=== PATIENT | female | born 1960 | race Caucasian/White ===

== ENCOUNTER 2017-01-26 12:24 | Emergency (ER) | payer OTHER ==
[~2017-01-26] VITALS: Ht 162.6 cm; Wt 72.0 kg
[~2017-01-26 12:24] MED LIST: ALPR0.254 PO; BEN50 PO; GABA100C PO; GABA100C14 PO; HYDR-906 PO; MIRT15TA5 PO; NAPR-688 PO; ONDA4TAB14 PO
[2017-01-26 12:31] VITALS: Ht 162.6 cm; Wt 72.0 kg
[2017-01-26] MEDS ORDERED: SOD CHLORIDE 0.9% 500 ML IV STA (12:56)
[2017-01-26] MEDS ORDERED: ONDANSETRON 4 MG INJ IV ONE (13:00)
[2017-01-26] MEDS ORDERED: morphine 2 MG INJ IV ONE (13:00)
--- NOTE | 2017-01-26 13:18 | ERD ---
ER Documentation Chief Complaint Date/Time DATE: 01/26/17 TIME: 13:13 Chief Complaint pt bib with c/o right rib/left knee pain s/p fall over garbage can HPI 56-year-old female presents emergency room with rib pain. [employer] use. The patient states 3 days ago she was trying to throw her garbage can into a larger garbage can. It fell and. She climbed up on the metal garbage can trying to retrieve her garbage can when what she was standing on broke. She fell with her right rib cage into the metal garbage can. The patient since then has had pain to the right upper quadrant of the abdomen and ribs. She describes it as moderate to severe and only mildly alleviated with Motrin. She denies any lightheadedness or dizziness. She describes no shortness of breath. The patient also has small abrasions to bilateral knees with mild soft tissue tenderness but full active and passive range of motion. She has been ambulatory. No head trauma or loss of consciousness. ROS All systems reviewed and are negative except as per history of present illness. Medications Home Meds Active Scripts Ondansetron (Ondansetron Odt) 4 Mg Tab.rapdis, 4 MG PO Q6H Y for NAUSEA AND/OR VOMITING, #10 TAB Prov:SARI BRUSH DO 09/29/16 Naproxen* (Naproxen*) 500 Mg Tablet, 500 MG PO BID, #20 TAB Prov:SARI BRUSH DO 09/29/16 Hydrocodone/Acetaminophen ([place]kom 5-325 Tablet) 1 Each Tablet, 1 EACH PO Q6, #20 TAB Prov:SRAI BRUSH DO 09/29/16 Reported Medications Alprazolam* (Alprazolam*) 0.25 Mg Tablet, 0.25 MG PO BID, TAB 09/29/16 Diphenhydramine Hcl* (Benadryl*) 50 Mg Cap, 50 MG PO QHS Y for ITCHING, CAP 09/29/16 Gabapentin* (Neurontin*) 100 Mg Capsule, 200 MG PO QHS, CAP 01/17/15 Gabapentin* (Gabapentin*) 100 Mg Capsule, 100 PO QAM, CAP 01/17/15 Mirtazapine* (Mirtazapine*) 15 Mg Tablet, 15 MG PO HS, TAB 01/17/15 Allergies Allergies: Coded Allergies: Penicillins (Unverified Allergy, Unknown, Clarify with patient, 08/29/15) re-entered uncoded allergy as coded PMhx/Soc History of Surgery: Yes (RIGHT BREAST MASTECTOMY) Anesthesia Reaction: No Hx Neurological Disorder: No Hx Respiratory Disorders: No Hx Cardiac Disorders: No Hx Psychiatric Problems: No Hx Miscellaneous Medical Probl: Yes (BREAST CA, ON CHEMO) Hx Alcohol Use: No Hx Substance Use: No Hx Tobacco Use: No FmHx Family History: No diabetes Physical Exam Vitals Vital Signs Date Time Temp Pulse Resp B/P Pulse Ox O2 Delivery O2 Flow Rate FiO2 01/26/17 12:31 99.1 70 16 135/85 99 Physical Exam Airway is intact Bilateral breath sounds Strong distal pulses No obvious deficits General: Well developed, well nourished, no acute distress Head: Normocephalic, atraumatic Eyes: Pupils equally reactive, EOM intact ENT: Moist mucous membranes Neck: Supple, no lymphadenopathy, No midline tenderness, deformities, step-offs to the cervical spine, full active and passive range of motion without midline pain. Respiratory: Lungs clear bilaterally, no distress, focal tenderness along the lower ribs on the right side without crepitus or deformities Cardiovascular: RRR, no murmurs, rubs, or gallops Abdominal: Soft, very inconsistent exam with possible right upper quadrant tenderness but no peritonitis, no ecchymoses : Deferred MSK: No edema, no unilateral swelling, 5/5 strength, no midline tenderness deformities or step-offs to the thoracolumbar spine. Bilateral knees with full active and passive range of motion, no bony abnormalities, steady gait, small abrasions noted to the anterior aspect of the knees bilaterally Neurologic: Alert and oriented, moving all extremities, normal speech, no focal weakness, no cerebellar signs Skin: No ecchymoses or bruising to the chest or abdomen Psych: Normal mood Result Diagram: 01/26/17 1314 01/26/17 1314 Results 24 hrs Laboratory Tests Test 01/26/17 13:14 Anion Gap 19 Basophils # 0.010^3/ul Basophils % 0.3% Blood Urea Nitrogen 14mg/dl Calcium Level 9.5mg/dl Carbon Dioxide Level 24mmol/L Chloride Level 106mmol/L Creatinine 0.66mg/dl Eosinophils # 0.310^3/ul Eosinophils % 3.8% Glucose Level 83mg/dl Hematocrit 36.6% Hemoglobin 11.9g/dl Lymphocytes # 1.610^3/ul Lymphocytes % 20.0% Mean Corpuscular Hemoglobin 27.6pg Mean Corpuscular Hemoglobin Concent 32.5g/dl Mean Corpuscular Volume 84.9fl Mean Platelet Volume 9.6fl Monocytes # 0.410^3/ul Monocytes % 5.0% Neutrophils # 5.510^3/ul Neutrophils % 70.4% Nucleated Red Blood Cells # 0.010^3/ul Nucleated Red Blood Cells % 0.0/100WBC Platelet Count 51572^3/UL Potassium Level 4.1mmol/L Red Blood Count 4.3110^6/ul Red Cell Distribution Width 13.5% Sodium Level 145mmol/L White Blood Count 7.910^3/ul Current Medications Medications (Trade) Dose Ordered Sig/Faith Route PRN Reason Start Time Stop Time Status Last Admin Dose Admin Sodium Chloride (NS) 500 ml @ 500 mls/hr Q1H STAT IV 01/26/17 12:56 01/26/17 13:55 DC 01/26/17 13:17 Morphine Sulfate (morphine) 4 mg ONCE ONCE IV 01/26/17 13:00 01/26/17 13:01 DC 01/26/17 13:18 Ondansetron HCl (Zofran Inj) 4 mg ONCE ONCE IV 01/26/17 13:00 01/26/17 13:01 DC 01/26/17 13:18 Iohexol 150 ml 150 ml STK-MED ONCE .ROUTE 01/26/17 13:53 01/26/17 13:54 DC Sodium Chloride (NS) 100 ml @ ud STK-MED ONCE .ROUTE 01/26/17 13:53 01/26/17 13:54 DC Procedures/MDM EKG, MONITORS, & DIAGNOSTIC IMAGING: Chest x-ray: I reviewed and interpreted a 1 view of the chest Mediastinum: No enlargement Cardiac silhouette: No cardiomegaly Airspace: Clear lung cohen bilaterally without evidence of pneumothorax Bones: No evidence of fracture CT abdomen and pelvis: IMPRESSION: 1. Mild atelectasis at the lung bases. 2. Atherosclerosis. 3. Fibroids in the uterus. 4. Diverticulosis of the descending colon and sigmoid colon. No evidence of diverticulitis. 5. Otherwise unremarkable contrast enhanced CT scan of the abdomen and pelvis. RPTAT: QQ LAB INTERPRETATION: No anemia MEDICAL DECISION MAKING: The patient presents with right-sided rib pain and right upper quadrant abdominal pain status post blunt trauma. While I have a low pretest probability and concern for possible hepatic injury given injury occurred 3 days ago and the patient is human dynamically stable she persistently states that she feels internal pain underneath the ribs. Given the mechanism and location of injury it would be reasonable to obtain CT imaging with IV contrast to rule out acute intra-abdominal blunt trauma. No evidence of pneumothorax. Bilateral knees consistent with contusions but no evidence of fracture no indication for x-ray imaging. Her tetanus is up-to-date. ER COURSE: The patient was given IV fluids and pain control medication. Diagnostic imaging is negative for acute intra-abdominal or intrathoracic injury. Clinical exam and injury consistent with rib contusion. I discussed expectant management. The patient is safe for discharge. I discussed deeper respirations on a regular basis. Patient verbalizes understanding. Incentive spirometer provided to the patient. I kept the patient and/or family informed of laboratory and diagnostic imaging results throughout the emergency room course. DISPOSITION PLAN: We discussed follow up with the patient's primary care doctor within 24 to 48 hours as needed. We also discussed return to the emergency room for worsening symptoms or worsening condition. Outpatient referral: None required Discharge Medications: Inkom, Zofran, Motrin We discussed the use of narcotics including avoidance of operating heavy machinery and driving as well as its addictive properties. Departure Diagnosis: Primary Impression: Contusion of left knee Encounter type: initial encounter Qualified Code: S80.02XA - Contusion of left knee, initial encounter Additional Impression: Contusion of rib on right side Encounter type: initial encounter Qualified Code: S20.211A - Contusion of rib on right side, initial encounter Condition: ESME Conklin MD Jan 26, 2017 13:18
[2017-01-26 13:32] LABS: ADD SCAN DIFF NO
[2017-01-26 13:35] LABS: BASOPHILS % 0.3 % (0.0-2.0); EOSINOPHILS # 0.3 10^3/ul (0.0-0.5); EOSINOPHILS % 3.8 % (0.0-7.0); HEMATOCRIT 36.6 % (37.0-47.0); HEMOGLOBIN 11.9 g/dl (12.0-16.0); LYMPHOCYTES # 1.6 10^3/ul (0.8-2.9); MEAN CORPUSCULAR HEMOGLOBIN 27.6 pg (29.0-33.0); MEAN CORPUSCULAR HGB CONC 32.5 g/dl (32.0-37.0); MEAN CORPUSCULAR VOLUME 84.9 fl (82.0-101.0); MEAN PLATELET VOLUME 9.6 fl (7.4-10.4); MONOCYTE # 0.4 10^3/ul (0.3-0.9); NEUTROPHIL # 5.5 10^3/ul (1.6-7.5); NEUTROPHILS % 70.4 % (39.0-77.0); PLATELET COUNT 280 10^3/UL (140-415); RED BLOOD COUNT 4.31 10^6/ul (4.20-5.40); RED CELL DISTRIBUTION WIDTH 13.5 % (11.5-14.5); WHITE BLOOD COUNT 7.9 10^3/ul (4.8-10.8)
--- NOTE | 2017-01-26 13:46 | RADRPT ---
PROCEDURE: Chest x-ray CLINICAL INDICATION: Trauma with chest pain TECHNIQUE: Chest single view COMPARISON: 08/29/2015 FINDINGS: The heart is normal in size. The pulmonary vessels are normal in caliber. The lungs are clear. Th e costophrenic angles are sharp. The visualized bony thorax is unremarkable. IMPRESSION: No acute cardiopulmonary disease. No evidence of pneumothorax RPTAT: HH .Jonas Laureano MD, MD Date Time Electronically viewed and signed by .Jonas Laureano MD, on 01/26/2017 13:46 .W/
[2017-01-26] MEDS ORDERED: SOD CHLORIDE 0.9% 100 ML ONE (13:53)
[2017-01-26] MEDS ORDERED: IOHEXOL 300MG/ML 150 ML BTL ONE (13:53)
[2017-01-26 13:59] LABS: POTASSIUM 4.1 mmol/L (3.5-5.1)
[2017-01-26 14:01] LABS: CREATININE 0.66 mg/dl (0.44-1.00)
[2017-01-26 14:02] LABS: CALCIUM 9.5 mg/dl (8.4-10.2)
--- NOTE | 2017-01-26 14:30 | RADRPT ---
PROCEDURE: CT Abdomen and Pelvis with contrast. CLINICAL INDICATION: Trauma. Abdominal and pelvic pain. History of breast cancer. TECHNIQUE: CT scan of the abdomen and pelvis with contrast was performed. The patient was scanned following the uncomplicated intravenous administration of 90 cc of Omnipaque-300. Coronal and sagit parminder reformatted images were obtained from the axial source images. Images were reviewed on a [employer] PACS workstation. Total exam DLP is 1122.81 mGy-cm. CTDIvol is 20.07 mGy. One or more of the following dose reduction techniques were used: Automated exposure control, adjustment of the mA and/or kV according to patient size, use of iterative reconstruction technique. COMPARISON: None. FINDINGS: There is mild atelectasis at the lung bases. The lung bases are otherwise normal. There is no pleu ral effusion or pericardial effusion. The heart size is normal. The liver is normal in size and attenuation. There is no focal hepatic lesion. The gallbladder and bile ducts are normal. The spleen is normal in size. There is no focal splenic lesion. Both adrenals are normal with no enlargement or mass. The pancreas is unremarkable with no mass or evidence of pancreatitis. Both kidneys demonstrate normal contrast enhancement. There is no renal mass or hydronephrosis. The abdominal aorta is not dilated. There is calcification in the aorta consistent with atheroscler osis. There is no retroperitoneal lymphadenopathy or mass. There is no pelvic lymphadenopathy. There are masses in the uterus consistent with fibroids. There is no other pelvic mass. The bladder and distal ureters are normal. The periappendiceal region is unremarkable with no evidence of appendicitis. There is diverticulosis of the descending colon and sigmoid colon. There is no evidence of divertic ulitis. The bowel and mesentery are otherwise normal. There is no free fluid or free gas. The osseous structures are unremarkable with no fracture or lytic lesion. IMPRESSION: 1. Mild atelectasis at the lung bases. 2. Atherosclerosis. 3. Fibroids in the uterus. 4. Diverticulosis of the descending colon and sigmoid colon. No evidence of diverticulitis. 5. Otherwise unremarkable contrast enhanced CT scan of the abdomen and pelvis. RPTAT: QQ .Raoul Meza MD, Date Time Electronically viewed and signed by .Raoul Meza MD, on 01/26/2017 14:30 .R/
[2017-01-26] MEDS ORDERED: HYDR-902 PO (14:38)
[2017-01-26] MEDS ORDERED: ONDA4TAB14 PO (14:38)
[2017-01-26] MEDS ORDERED: IBUP800T25 PO (14:38)
== END 2017-01-26 14:45 | disposition home or self-care (01) ==
LOC: FTE 12:24
DX: S80.02XA Contusion of left knee, initial encounter (principal); S20.211A Contusion of right front wall of thorax, initial encounter; W18.39XA Other fall on same level, initial encounter; Y92.9 Unspecified place or not applicable; Z85.3 Personal history of malignant neoplasm of breast
CPT/HCPCS: 71010; 74177; 80048; 85025; 96374; 96375; J2270; J2405; J7040; Q9967; Z7502; Z7610

== ENCOUNTER 2017-03-22 07:07 | Emergency (ER) | payer OTHER ==
[~2017-03-22] VITALS: Ht 160 cm; Wt 78.9 kg
[~2017-03-22 07:07] MED LIST changes: +HYDR-902 PO; +IBUP800T25 PO
[2017-03-22 07:22] VITALS: Ht 160 cm; Wt 78.9 kg
[2017-03-22] MEDS ORDERED: ACETAMINOPHEN 500 MG TAB PO STA (07:46)
--- NOTE | 2017-03-22 07:56 | ERD ---
ER Documentation Chief Complaint Date/Time DATE: 03/22/17 TIME: 07:55 Chief Complaint flu like symptoms today, fever,chills,body aches, hx anxiety HPI 56-year-old female with a history of breast cancer last on chemotherapy a year ago comes to the emergency room with fever that started last night as well as generalized body aches. She states that she has pain all over, and it feels achy and on her entire body. She states that she had chills this morning and noted to have pain and took ibuprofen last night. She reports mild sore throat. She denies any runny nose, cough or congestion. She denies any vomiting, diarrhea or abdominal pain. She denies any recent hospitalizations. ROS All systems reviewed and are negative except as per history of present illness. Medications Home Meds Active Scripts Levofloxacin* (Levaquin*) 750 Mg Tablet, 750 MG PO DAILY for 5 Days, TAB Prov:SHRUTI CARRANZA PA-C 03/22/17 Ibuprofen* (Motrin*) 800 Mg Tab, 800 MG PO Q6H Y for PAIN AND OR ELEVATED TEMP, #30 TAB Prov:ESME ARNOLD MD 01/26/17 Ondansetron (Ondansetron Odt) 4 Mg Tab.rapdis, 4 MG PO Q6H Y for NAUSEA AND/OR VOMITING, #10 TAB Prov:ESME ARNOLD MD 01/26/17 Hydrocodone/Acetaminophen ([place] 10-325 Tablet) 1 Each Tablet, 1 TAB PO Q6H Y for PAIN, #7 TAB Prov:ESME ARNOLD MD 01/26/17 Ondansetron (Ondansetron Odt) 4 Mg Tab.rapdis, 4 MG PO Q6H Y for NAUSEA AND/OR VOMITING, #10 TAB Prov:SARI BRUSH DO 09/29/16 Naproxen* (Naproxen*) 500 Mg Tablet, 500 MG PO BID, #20 TAB Prov:SARI BRUSH DO 09/29/16 Hydrocodone/Acetaminophen ([place] 5-325 Tablet) 1 Each Tablet, 1 EACH PO Q6, #20 TAB Prov:SARI BRUSH DO 09/29/16 Reported Medications Alprazolam* (Alprazolam*) 0.25 Mg Tablet, 0.25 MG PO BID, TAB 09/29/16 Diphenhydramine Hcl* (Benadryl*) 50 Mg Cap, 50 MG PO QHS Y for ITCHING, CAP 09/29/16 Gabapentin* (Neurontin*) 100 Mg Capsule, 200 MG PO QHS, CAP 01/17/15 Gabapentin* (Gabapentin*) 100 Mg Capsule, 100 PO QAM, CAP 01/17/15 Mirtazapine* (Mirtazapine*) 15 Mg Tablet, 15 MG PO HS, TAB 01/17/15 Allergies Allergies: Coded Allergies: Penicillins (Unverified Allergy, Unknown, Clarify with patient, 08/29/15) re-entered uncoded allergy as coded PMhx/Soc History of Surgery: Yes (RIGHT BREAST MASTECTOMY) Anesthesia Reaction: No Hx Neurological Disorder: No Hx Respiratory Disorders: No Hx Cardiac Disorders: No Hx Psychiatric Problems: No Hx Miscellaneous Medical Probl: Yes (BREAST CA, ON CHEMO) Hx Alcohol Use: No Hx Substance Use: No Hx Tobacco Use: No Physical Exam Vitals Vital Signs Date Time Temp Pulse Resp B/P Pulse Ox O2 Delivery O2 Flow Rate FiO2 03/22/17 08:58 99.5 98 14 98 Room Air 03/22/17 07:22 103.0 99 18 164/91 99 Physical Exam General: Well-developed, well-nourished. The patient appears in no acute distress. HEENT: Head is normocephalic, atraumatic. No scleral icterus. Pupils are equal , round, and reactive. Oral mucous membranes are moist. No pharyngeal erythema. Neck: Supple. Nontender. Lungs: Clear to auscultation. Normal air movement. Heart: Regular rate and rhythm. S1 and S2 are normal. No murmurs, gallops, or rubs. Abdomen: Soft, nontender, nondistended. Bowel sounds are normoactive. Extremities: No clubbing or cyanosis. Normal pulses. Moving extremities x 4. No weakness. Neurologic: Alert and oriented 3. No focal deficits. Skin: Normal turgor. No rash or lesions. Results 24 hrs Laboratory Tests Test 03/22/17 08:00 Bedside Urine pH (LAB) 7.5 Bedside Urine Protein (LAB) Negative Bedside Urine Glucose (UA) Negative Bedside Urine Ketones (LAB) Negative Bedside Urine Blood Negative Bedside Urine Nitrite (LAB) Negative Bedside Urine Leukocyte Esterase (L Negative Current Medications Medications (Trade) Dose Ordered Sig/Faith Route PRN Reason Start Time Stop Time Status Last Admin Dose Admin Acetaminophen (Tylenol Tab) 1,000 mg ONCE STAT PO 03/22/17 07:46 03/22/17 07:47 DC 03/22/17 07:54 PROCEDURE: XR Chest. CLINICAL INDICATION: Chest pain , fever TECHNIQUE: Single portable view of the chest was obtained COMPARISON: 01/26/2017 FINDINGS: The heart is enlarged. There is a mild right upper lobe infiltrate. There is no pleural effusion or pneumothorax. RPTAT: AA IMPRESSION: Mild Cardiomegaly. Mild right upper lobe infiltrate. .Henry Kwok MD, MD Date Time Electronically viewed and signed by .Henry Kwok MD, on 03/22/2017 08: 48 .S/ Procedures/MDM ED course: Patient was given Tylenol 1 g by mouth. MDM: 56-year-old female comes in with fever for the past less than 1 day, patient had a chest x-ray performed that shows some upper right lobe pneumonia. Her fever was treated with Tylenol here and her fever defervesced and she reports to be feeling better at this time. She had recent labs in January 2017, which were normal. Concern for sepsis is low at this time. She has had a fever for less than 1 day, with sore throat. Pneumonia may be viral versus bacterial, this was discussed with my attending physician Dr. Mercado agrees that the patient is appropriate for outpatient management, and it was indicated to treat with Levaquin at this time. I discussed the results with the patient she feels comfortable following up with her primary care physician in the next 1 -2 days. Departure Diagnosis: Primary Impression: Community acquired pneumonia Condition: SHRUTI Kaur PA-C March 22, 2017 07:56
[2017-03-22 07:58] LABS: URINE BLOOD (Dip) POC Negative (NEGATIVE)
--- NOTE | 2017-03-22 08:49 | RADRPT ---
PROCEDURE: XR Chest. CLINICAL INDICATION: Chest pain , fever TECHNIQUE: Single portable view of the chest was obtained COMPARISON: 01/26/2017 FINDINGS: The heart is enlarged. There is a mild right upper lobe infiltrate. There is no pleural effusion or pneumothorax. RPTAT: AA IMPRESSION: Mild Cardiomegaly. Mild right upper lobe infiltrate. .Henry Kwok MD, MD Date Time Electronically viewed and signed by .Henry Kwok MD, on 03/22/2017 08:48 .S/
[2017-03-22 08:58] VITALS: PULSE 98; RESP 14; TEMP 99.5
[2017-03-22] MEDS ORDERED: LEVO750T25 PO (09:12)
== END 2017-03-22 09:27 | disposition home or self-care (01) ==
LOC: FTE 07:07
DX: J18.9 Pneumonia, unspecified organism (principal); Z85.3 Personal history of malignant neoplasm of breast
CPT/HCPCS: 71010; 81003; 87400; Z7502; Z7610

== ENCOUNTER 2017-04-08 10:23 | Emergency (ER) | payer OTHER ==
[~2017-04-08] VITALS: Ht 165.1 cm; Wt 75.0 kg
[~2017-04-08 10:23] MED LIST changes: +LEVO750T25 PO
[2017-04-08 10:37] VITALS: Ht 165.1 cm; Wt 75.0 kg
[2017-04-08] MEDS ORDERED: LORAZEPAM 0.5 MG TAB PO ONE (11:00)
[2017-04-08 11:05] LABS: ADD SCAN DIFF NO
[2017-04-08 11:07] LABS: BASOPHILS % 0.3 % (0.0-2.0); EOSINOPHILS # 0.3 10^3/ul (0.0-0.5); EOSINOPHILS % 3.6 % (0.0-7.0); HEMATOCRIT 38.1 % (37.0-47.0); HEMOGLOBIN 12.1 g/dl (12.0-16.0); LYMPHOCYTES % 22.8 % (15.0-51.0); MEAN CORPUSCULAR HGB CONC 31.8 g/dl (32.0-37.0); MEAN PLATELET VOLUME 9.6 fl (7.4-10.4); MONOCYTE # 0.4 10^3/ul (0.3-0.9); MONOCYTES % 4.5 % (0.0-11.0); NEUTROPHILS % 68.6 % (39.0-77.0); PLATELET COUNT 297 10^3/UL (140-415); RED BLOOD COUNT 4.48 10^6/ul (4.20-5.40); RED CELL DISTRIBUTION WIDTH 13.6 % (11.5-14.5); WHITE BLOOD COUNT 8.7 10^3/ul (4.8-10.8)
[2017-04-08] MEDS ORDERED: FAMO20TA18 PO (11:10)
[2017-04-08] MEDS ORDERED: ALPR0.5T6 PO (11:12)
--- NOTE | 2017-04-08 11:18 | RADRPT ---
PROCEDURE: XR Chest. CLINICAL INDICATION: Shortness of breath TECHNIQUE: Single frontal chest x-ray. COMPARISON: 03/22/2017 FINDINGS: The lungs are clear of acute infiltrates, edema, effusions, or masses.. Cardiomediastinal silhouett e is stable.. The osseous structures are intact. IMPRESSION: No acute cardiopulmonary disease. RPTAT: [facility] .Allen Montelongo MD, Date Time Electronically viewed and signed by .Allen Montelongo MD, on 04/08/2017 11:17 .L/
[2017-04-08 12:00] LABS: ALBUMIN 4.7 g/dl (3.3-4.9); POTASSIUM 3.9 mmol/L (3.5-5.1)
[2017-04-08 12:02] LABS: CREATININE 0.69 mg/dl (0.44-1.00)
[2017-04-08 12:03] LABS: ALBUMIN/GLOBULIN RATIO 1.27; BILIRUBIN,INDIRECT 0.1 mg/dl (0-1.1); BILIRUBIN,TOTAL 0.1 mg/dl (0.2-1.3); TOTAL PROTEIN 8.4 g/dl (6.1-8.1)
[2017-04-08 12:04] LABS: CALCIUM 9.6 mg/dl (8.4-10.2)
[2017-04-08 12:22] LABS: ADD UMIC YES; URINE BILIRUBIN (Dip) NEGATIVE (NEGATIVE); URINE BLOOD (Dip) TRACE (NEGATIVE); URINE COLOR LT. YELLOW (YELLOW); URINE GLUCOSE (Dip) NEGATIVE (NEGATIVE); URINE KETONES (Dip) NEGATIVE (NEGATIVE); URINE LEUKOCYTE ESTERASE (Dip) NEGATIVE (NEGATIVE); URINE NITRITE (Dip) NEGATIVE (NEGATIVE); URINE TOTAL PROTEIN (Dip) NEGATIVE (NEGATIVE); URINE UROBILINOGEN (Dip) 0.2 E.U./dL (0.1-1.0)
[2017-04-08] MEDS ORDERED: PARO40TA48 PO (12:32)
[2017-04-08] MEDS ORDERED: LORA1TAB PO (12:32)
--- NOTE | 2017-04-08 12:35 | ERD ---
ER Documentation Chief Complaint Date/Time DATE: 04/08/17 TIME: 1041 Chief Complaint Complains of chest pain radiating to the back (thinks also exposed to TB) HPI 56-year-old female presents to the emergency room with multiple complaints. She is literally telling me that she has pain all over her body. She has no specific one part of her body that she is complaining of. I reviewed the triage note indicating that she is concerned that she was exposed to tuberculosis, but she reports no cough hemoptysis fever weight loss or night sweats. She is complaining of severe anxiety and depression but denies suicidal or homicidal thoughts. ROS All systems reviewed and are negative except as per history of present illness. Medications Home Meds Active Scripts Lorazepam* (Lorazepam*) 1 Mg Tablet, 1 MG PO Q6 Y for ANXIETY, #60 TAB Prov:CARSON ISMPSON 04/08/17 Paroxetine Hcl* (Paxil*) 40 Mg Tablet, 40 MG PO DAILY, #20 TAB Prov:CARSON SIMPSON 04/08/17 Ibuprofen* (Motrin*) 800 Mg Tab, 800 MG PO Q6H Y for PAIN AND OR ELEVATED TEMP, #30 TAB Prov:ESME ARNOLD MD 01/26/17 Reported Medications Alprazolam* (Alprazolam*) 0.5 Mg Tablet, 0.5 MG PO Q12 Y for ANXIETY, TAB 04/08/17 Famotidine* (Famotidine*) 20 Mg Tablet, 20 MG PO DAILY, #30 TAB 04/08/17 Diphenhydramine Hcl* (Benadryl*) 50 Mg Cap, 50 MG PO QHS Y for ITCHING, CAP 09/29/16 Gabapentin* (Neurontin*) 100 Mg Capsule, 200 MG PO QHS, CAP 01/17/15 Gabapentin* (Gabapentin*) 100 Mg Capsule, 100 PO QAM, CAP 01/17/15 Mirtazapine* (Mirtazapine*) 15 Mg Tablet, 15 MG PO HS, TAB 01/17/15 Discontinued Reported Medications Alprazolam* (Alprazolam*) 0.25 Mg Tablet, 0.25 MG PO BID, TAB 09/29/16 Discontinued Scripts Levofloxacin* (Levaquin*) 750 Mg Tablet, 750 MG PO DAILY for 5 Days, TAB Prov:SHRUTI CARRANZA PA-C 03/22/17 Ondansetron (Ondansetron Odt) 4 Mg Tab.rapdis, 4 MG PO Q6H Y for NAUSEA AND/OR VOMITING, #10 TAB Prov:ESME ARNOLD MD 01/26/17 Hydrocodone/Acetaminophen ([place] 10-325 Tablet) 1 Each Tablet, 1 TAB PO Q6H Y for PAIN, #7 TAB Prov:ESME ARNOLD MD 01/26/17 Ondansetron (Ondansetron Odt) 4 Mg Tab.rapdis, 4 MG PO Q6H Y for NAUSEA AND/OR VOMITING, #10 TAB Prov:SARI BRUSH DO 09/29/16 Naproxen* (Naproxen*) 500 Mg Tablet, 500 MG PO BID, #20 TAB Prov:SARI BRUSH DO 09/29/16 Hydrocodone/Acetaminophen ([place] 5-325 Tablet) 1 Each Tablet, 1 EACH PO Q6, #20 TAB Prov:SARI BRUSH DO 09/29/16 Allergies Allergies: Coded Allergies: Penicillins (Unverified Allergy, Unknown, Clarify with patient, 08/29/15) re-entered uncoded allergy as coded PMhx/Soc History of Surgery: Yes (RIGHT BREAST MASTECTOMY) Anesthesia Reaction: No Hx Neurological Disorder: No Hx Respiratory Disorders: No Hx Cardiac Disorders: No Hx Psychiatric Problems: No Hx Miscellaneous Medical Probl: Yes (BREAST CA, anxiety) Hx Alcohol Use: No Hx Substance Use: No Hx Tobacco Use: No Smoking Status: Never smoker FmHx Noncontributory for chief complaint Physical Exam Vitals Vital Signs Date Time Temp Pulse Resp B/P Pulse Ox O2 Delivery O2 Flow Rate FiO2 04/08/17 10:41 98.3 78 18 125/83 98 Room Air 04/08/17 10:37 98.3 86 20 98 Physical Exam GENERAL: The patient is well developed and appropriate for usual state of health in no apparent distress HEENT: Pupils equal, round, and reactive to light. EOMI. There is no scleral icterus. NECK: C-spine is soft and supple, there is no meningismus. There is no cervical lymphadenopathy. LUNGS: Clear to auscultation bilaterally. There are no rales, wheezes or rhonchi. HEART: Regular rate and rhythm, no murmurs, clicks, rubs or gallops. ABDOMEN: Soft, non-tender, non-distended. There are bowel sounds in all four quadrants. No rebound or guarding. EXTREMITIES: There is no peripheral cyanosis or edema. No focal swelling or erythema. NEURO: The patient moves all four extremities with 5/5 strength. Cranial nerves II - XII are intact. Normal gait. Alert and oriented SKIN: There is no apparent rash or petechiae. HEME/LYMPHATIC: There is no evidence of excessive bruising or lymphedema. PSYCHIATRIC: Patient is anxious and depressed. She denies suicidal or homicidal thoughts at this time. Result Diagram: 04/08/17 1055 04/08/17 1055 Results 24 hrs Laboratory Tests Test 04/08/17 10:55 White Blood Count 8.710^3/ul Red Blood Count 4.4810^6/ul Hemoglobin 12.1g/dl Hematocrit 38.1% Mean Corpuscular Volume 85.0fl Mean Corpuscular Hemoglobin 27.0pg Mean Corpuscular Hemoglobin Concent 31.8g/dl Red Cell Distribution Width 13.6% Platelet Count 12612^3/UL Mean Platelet Volume 9.6fl Neutrophils % 68.6% Lymphocytes % 22.8% Monocytes % 4.5% Eosinophils % 3.6% Basophils % 0.3% Nucleated Red Blood Cells % 0.0/100WBC Neutrophils # 6.010^3/ul Lymphocytes # 2.010^3/ul Monocytes # 0.410^3/ul Eosinophils # 0.310^3/ul Basophils # 0.010^3/ul Nucleated Red Blood Cells # 0.010^3/ul Urine Color LT. YELLOW Urine Clarity CLEAR Urine pH 7.0 Urine Specific [place] <=1.005 Urine Ketones NEGATIVE Urine Nitrite NEGATIVE Urine Bilirubin NEGATIVE Urine Urobilinogen 0.2 E.U./dL Urine Leukocyte Esterase NEGATIVE Urine Microscopic RBC Pending Urine Microscopic WBC Pending Urine Hemoglobin TRACE Urine Glucose NEGATIVE% Urine Total Protein NEGATIVE Sodium Level 144mmol/L Potassium Level 3.9mmol/L Chloride Level 109mmol/L Carbon Dioxide Level 28mmol/L Anion Gap 11 Blood Urea Nitrogen 15mg/dl Creatinine 0.69mg/dl Glucose Level 99mg/dl Calcium Level 9.6mg/dl Total Bilirubin 0.1mg/dl Direct Bilirubin 0.00mg/dl Indirect Bilirubin 0.1mg/dl Aspartate Amino Transf (AST/SGOT) 21IU/L Alanine Aminotransferase (ALT/SGPT) 36IU/L Alkaline Phosphatase 116IU/L Total Protein 8.4g/dl Albumin 4.7g/dl Globulin 3.70g/dl Albumin/Globulin Ratio 1.27 Current Medications Medications (Trade) Dose Ordered Sig/Faith Route PRN Reason Start Time Stop Time Status Last Admin Dose Admin Lorazepam (Ativan) 0.5 mg ONCE ONCE PO 04/08/17 11:00 04/08/17 11:01 DC 04/08/17 10:52 Procedures/MDM Patient was taken to a room, seen and evaluated. Comfort measures were initiated. Diagnostic tests were ordered and reviewed. 3 LEAD RHYTHM STRIP: Normal sinus rhythm without ectopy EK lead EKG reviewed by myself: Normal Sinus Rhythm Normal [place] and intervals Nonspecific ST and T-wave changes without ST elevation Impression: Nonspecific EKG RADIOLOGY: reviewed with the radiologist REEVALUATION: Patient remained comfortable and stable in the emergency room MEDICAL DECISION MAKIN-year-old female presented to the emergency department with a number of nonspecific symptoms likely related to anxiety and depression. At this time, patient shows no evidence of infection, ischemia or other high-risk concerns. Patient overall is been reassured and seems appropriate for outpatient management. In regards to her psychiatric concerns, she was offered inpatient psychiatric hospitalization on a voluntary basis, but she is declining this. At this time, she does not appear to be a danger to herself or others. Departure Diagnosis: Primary Impression: Anxiety Condition: Stable Patient Instructions: Anxiety Reaction Additional Instructions: See your doctor for follow-up as discussed. Take a copy of your test results, if appropriate, to this follow-up visit. See your doctor or return here if your symptoms do not improve as expected. At any time, please return to the emergency department for any change or worsening in her symptoms. CARSON SIMPSON April 08, 2017 12:35
[2017-04-08 12:40] LABS: SQUAMOUS EPITHELIAL CELL,UR FEW; URINE RBCS NONE SEEN /HPF (0)
[2017-04-08 12:54] VITALS: BP 108/79; PULSE 74; RESP 18; TEMP 98.3
== END 2017-04-08 12:56 | disposition home or self-care (01) ==
LOC: E/R 10:23
DX: F41.9 Anxiety disorder, unspecified (principal); R40.2252 Coma scale, best verbal response, oriented, at arrival to emergency department; R40.2362 Coma scale, best motor response, obeys commands, at arrival to emergency department; Z85.3 Personal history of malignant neoplasm of breast
CPT/HCPCS: 36415; 71010; 80053; 81001; 85025; 93005; Z7502; Z7610

== ENCOUNTER 2017-05-14 13:03 | Emergency (ER) | payer OTHER ==
[~2017-05-14] VITALS: Ht 162.6 cm; Wt 73.6 kg
[~2017-05-14 13:03] MED LIST changes: -ALPR0.254 PO; +ALPR0.5T6 PO; +FAMO20TA18 PO; -HYDR-902 PO; -HYDR-906 PO; -LEVO750T25 PO; +LORA1TAB PO; -NAPR-688 PO; -ONDA4TAB14 PO; +PARO40TA48 PO
[2017-05-14 13:05] VITALS: Ht 162.6 cm; Wt 73.6 kg
[2017-05-14] MEDS ORDERED: KETOROLAC 30 MG INJ IV STA (13:12)
[2017-05-14 13:51] LABS: ADD SCAN DIFF NO; BASOPHILS % 0.3 % (0.0-2.0); EOSINOPHILS # 0.3 10^3/ul (0.0-0.5); EOSINOPHILS % 2.9 % (0.0-7.0); HEMATOCRIT 38.5 % (37.0-47.0); HEMOGLOBIN 12.2 g/dl (12.0-16.0); LYMPHOCYTES % 21.9 % (15.0-51.0); MEAN CORPUSCULAR HEMOGLOBIN 26.9 pg (29.0-33.0); MEAN CORPUSCULAR HGB CONC 31.7 g/dl (32.0-37.0); MEAN PLATELET VOLUME 9.5 fl (7.4-10.4); MONOCYTE # 0.3 10^3/ul (0.3-0.9); MONOCYTES % 3.1 % (0.0-11.0); NEUTROPHIL # 6.4 10^3/ul (1.6-7.5); NEUTROPHILS % 71.2 % (39.0-77.0); PLATELET COUNT 318 10^3/UL (140-415); RED BLOOD COUNT 4.53 10^6/ul (4.20-5.40); RED CELL DISTRIBUTION WIDTH 13.7 % (11.5-14.5)
--- NOTE | 2017-05-14 14:05 | RADRPT ---
PROCEDURE: XR, Chest. CLINICAL INDICATION: Chest pain. TECHNIQUE: AP chest COMPARISON: Chest, 03/22/2017. FINDINGS: There is no acute infiltrate in the lungs. No pleural effusion. The heart is not enlarged. IMPRESSION: 1. Unremarkable chest x-ray. RPTAT: GG .Chapo Keen MD, MD Date Time Electronically viewed and signed by .Chapo Keen MD, MD on 05/14/2017 14:05 .Y/
[2017-05-14 14:07] LABS: INR 0.96; PROTIME 12.8 Sec (12.2-14.2)
[2017-05-14 14:08] LABS: PARTIAL THROMBOPLASTIN TIME 30.8 Sec (25.0-35.0)
[2017-05-14 14:10] LABS: ANION GAP 15 (8-16); BLOOD UREA NITROGEN 11 mg/dl (7-20); CALCIUM 9.8 mg/dl (8.4-10.2); CARBON DIOXIDE 23 mmol/L (21-31); CHLORIDE 106 mmol/L (97-110); CREATININE 0.74 mg/dl (0.44-1.00); GLUCOSE 145 mg/dl (70-220); POTASSIUM 3.8 mmol/L (3.5-5.1); SODIUM 140 mmol/L (135-144)
[2017-05-14 14:26] LABS: TROPONIN-I < 0.012 ng/ml (0.00-0.12)
[2017-05-14] MEDS ORDERED: IOHEXOL 100 ML ONE (14:35)
[2017-05-14] MEDS ORDERED: SOD CHLORIDE 0.9% 100 ML ONE (14:35)
[2017-05-14] MEDS ORDERED: morphine 4 MG/ML VIAL IV STA (14:54)
[2017-05-14] MEDS ORDERED: OMEP20CA16 PO (14:56)
[2017-05-14] MEDS ORDERED: ONDANSETRON 4 MG INJ IV STA (15:06)
--- NOTE | 2017-05-14 15:21 | RADRPT ---
PROCEDURE: CT pulmonary angiogram. CLINICAL INDICATION: Chest pain and shortness of breath. TECHNIQUE: CT scan of the chest and CT pulmonary angiogram was performed utilizing axial tomograp hic imaging from the thoracic inlet to the domes of the diaphragm. High-resolution thin slice coron al and sagittal imaging was obtained from the axial source images. 3-D volumetric rendered post pro cessing was performed as well. The patient was examined following the uncomplicated intravenous adm inistration of 100 cc of Omnipaque 350. The images were reviewed on a PACS workstation. The total ex am CTDI equals 14.08, 15.48 and the total exam DLP equals 530.63 mGy-cm. One or more of the followi ng dose reduction techniques were used: Automated exposure control, adjustment of the mA and / or k V according to patient size, or use of iterative reconstruction technique. COMPARISON: No prior studies are available for comparison. FINDINGS: The lungs demonstrate bibasilar atelectatic changes. No focal airspace opacity, pleural effusion, o r pneumothorax is seen. No pulmonary nodules or masses are identified. There is no abnormal interst itial thickening. The trachea and proximal bronchi are unremarkable. The visualized thyroid is unremarkable. The heart is grossly normal in size and configuration. The aorta demonstrates normal branching pattern. The aorta is normal in caliber. There is no evidence of aortic dissection. The central pulmonary arteries are normal in caliber. The attenuation of the central pulmonary arteries measures 414 HU. No filling defects are identified within the proximal pulmonary arterial branches to suggest pulmonary embolism. No hilar, mediastinal, or axillary lymphadenopathy is identified. Limited evaluation of the upper abdomen is unremarkable. The osseous structures demonstrate senesce nt changes of the spine with multilevel lateral osteophytes. There is exaggeration of the normal th oracic kyphosis with widening of the AP diameter of the chest. IMPRESSION: 1. No CT evidence for pulmonary embolism. 2. The lungs are clear. 3. Widening of the AP diameter of the chest. Clinical correlation for COPD recommended. RPTAT: HH .Kaela Marquez MD, Date Time Electronically viewed and signed by .Kaela Marquez MDMD on 05/14/2017 15:21 .Marcus
[2017-05-14] MEDS ORDERED: NAPR-260 PO (15:29)
[2017-05-14] MEDS ORDERED: SOD CHLORIDE 0.9% 1,000 ML IV STA (15:52)
[2017-05-14] MEDS ORDERED: DEXAMETHASONE 10 MG/ML 1 ML INJ IV ONE (16:00)
[2017-05-14] MEDS ORDERED: DIPHENHYDRAMINE 50 MG INJ IV ONE (16:00)
[2017-05-14 16:03] VITALS: BP 114/65; PULSE 59; RESP 15; TEMP 97.7
--- NOTE | 2017-05-14 16:13 | ERD ---
ER Documentation Chief Complaint Date/Time DATE: 05/14/17 TIME: 16:07 Chief Complaint WEAKNESS, CP,LEFT ARM PAIN. HAD LEFT MASTECTOMY 5YRS HPI 56-year-old female with a history of anxiety and breast cancer status post radical left mastectomy in 2014 presenting with left-sided upper chest pain with left upper arm pain. She has had her symptoms for 1 week. Her symptoms are constant, nonpleuritic, associated with mild shortness of breath and generalized weakness. Advil seems to calm the pain a little bit. Her pain is worse when she tries to lift something. She also complains of pain in her neck , face, right chest, and all over her body. She denies any fevers, chills, nausea, vomiting, diarrhea. No vision disturbance or headache. ROS All systems reviewed and are negative except as per history of present illness. Medications Home Meds Active Scripts Naproxen* (Naprosyn*) 500 Mg Tablet, 500 MG PO BID Y for PAIN AND/OR INFLAMMATION, #30 TAB Prov:SUMANTH PECK MD 05/14/17 Reported Medications Omeprazole* (Omeprazole*) 20 Mg Capsule.dr, 20 MG PO DAILY, #30 CAP 05/14/17 Diphenhydramine Hcl* (Benadryl*) 50 Mg Cap, 50 MG PO QHS Y for ITCHING, CAP 09/29/16 Gabapentin* (Neurontin*) 100 Mg Capsule, 200 MG PO QHS, CAP 01/17/15 Gabapentin* (Gabapentin*) 100 Mg Capsule, 100 PO QAM, CAP 01/17/15 Mirtazapine* (Mirtazapine*) 15 Mg Tablet, 15 MG PO HS, TAB 01/17/15 Discontinued Reported Medications Alprazolam* (Alprazolam*) 0.5 Mg Tablet, 0.5 MG PO Q12 Y for ANXIETY, TAB 04/08/17 Famotidine* (Famotidine*) 20 Mg Tablet, 20 MG PO DAILY, #30 TAB 04/08/17 Discontinued Scripts Lorazepam* (Lorazepam*) 1 Mg Tablet, 1 MG PO Q6 Y for ANXIETY, #60 TAB Prov:CARSON SIMPSON 04/08/17 Paroxetine Hcl* (Paxil*) 40 Mg Tablet, 40 MG PO DAILY, #20 TAB Prov:CARSON SIMPSON 04/08/17 Ibuprofen* (Motrin*) 800 Mg Tab, 800 MG PO Q6H Y for PAIN AND OR ELEVATED TEMP, #30 TAB Prov:ESME ARNOLD MD 01/26/17 Allergies Allergies: Coded Allergies: morphine (Verified Allergy, Mild, phlebitis and itching, 05/14/17) Penicillins (Unverified Allergy, Unknown, 05/14/17) re-entered uncoded allergy as coded PMhx/Soc History of Surgery: Yes (RIGHT BREAST MASTECTOMY) Anesthesia Reaction: No Hx Neurological Disorder: No Hx Respiratory Disorders: No Hx Cardiac Disorders: No Hx Psychiatric Problems: No Hx Miscellaneous Medical Probl: Yes (BREAST CA, anxiety) Hx Alcohol Use: No Hx Substance Use: No Hx Tobacco Use: No Smoking Status: Never smoker FmHx Family History: No coronary disease, No diabetes Physical Exam Vitals Vital Signs Date Time Temp Pulse Resp B/P Pulse Ox O2 Delivery O2 Flow Rate FiO2 05/14/17 16:03 97.7 59 15 114/65 100 05/14/17 15:27 70 19 118/77 97 05/14/17 14:40 75 16 118/80 98 05/14/17 13:05 100.0 115 22 140/92 98 Physical Exam Const: Well-appearing, nontoxic, no apparent distress Head: Atraumatic Eyes: Normal Conjunctiva, PERRLA, EOMI ENT: Normal External Ears, Nose and Mouth. Neck: Full range of motion..~ No meningismus. Chest wall: Tenderness to palpation over the upper lateral chest wall and anterior shoulder. Resp: Clear to auscultation bilaterally Cardio: Regular rate and rhythm, no murmurs. Cap refill less than 2 seconds. 2+ distal pulses in all 4 extremities. Abd: Soft, non tender, non distended. Normal bowel sounds Skin: No petechiae or rashes Back: No midline or flank tenderness Ext: No cyanosis, or edema. Full range of motion of all extremities. Neur: Awake and alert and oriented 3, cranial nerves intact, strength and sensations intact in all 4 extremities Psych: Depressed mood, no SI or HI t Result Diagram: 05/14/17 1335 05/14/17 1335 Results 24 hrs Laboratory Tests Test 05/14/17 13:35 White Blood Count 9.010^3/ul Red Blood Count 4.5310^6/ul Hemoglobin 12.2g/dl Hematocrit 38.5% Mean Corpuscular Volume 85.0fl Mean Corpuscular Hemoglobin 26.9pg Mean Corpuscular Hemoglobin Concent 31.7g/dl Red Cell Distribution Width 13.7% Platelet Count 95429^3/UL Mean Platelet Volume 9.5fl Neutrophils % 71.2% Lymphocytes % 21.9% Monocytes % 3.1% Eosinophils % 2.9% Basophils % 0.3% Nucleated Red Blood Cells % 0.0/100WBC Neutrophils # 6.410^3/ul Lymphocytes # 2.010^3/ul Monocytes # 0.310^3/ul Eosinophils # 0.310^3/ul Basophils # 0.010^3/ul Nucleated Red Blood Cells # 0.010^3/ul Prothrombin Time 12.8Sec Prothrombin Time Ratio 1.0 INR International Normalized Ratio 0.96 Activated Partial Thromboplast Time 30.8Sec Sodium Level 140mmol/L Potassium Level 3.8mmol/L Chloride Level 106mmol/L Carbon Dioxide Level 23mmol/L Anion Gap 15 Blood Urea Nitrogen 11mg/dl Creatinine 0.74mg/dl Glucose Level 145mg/dl Calcium Level 9.8mg/dl Troponin I < 0.012ng/ml Current Medications Medications (Trade) Dose Ordered Sig/Faith Route PRN Reason Start Time Stop Time Status Last Admin Dose Admin Ketorolac Tromethamine 30 mg 30 mg ONCE STAT IV 05/14/17 13:12 05/14/17 13:23 DC 05/14/17 14:03 Sodium Chloride 100 ml @ STK-MED ONCE .ROUTE 05/14/17 14:35 05/14/17 14:36 ID 05/14/17 15:12 Iohexol (Omnipaque) 100 ml @ STK-MED ONCE .ROUTE 05/14/17 14:35 05/14/17 14:36 ID 05/14/17 15:12 Morphine Sulfate (morphine) 4 mg ONCE STAT IV 05/14/17 14:54 05/14/17 14:55 ID 05/14/17 15:18 Ondansetron HCl (Zofran Inj) 4 mg ONCE STAT IV 05/14/17 15:06 05/14/17 15:07 DC 05/14/17 15:17 Diphenhydramine HCl (Benadryl) 25 mg ONCE ONCE IV 05/14/17 16:00 05/14/17 16:01 DC 05/14/17 15:54 Dexamethasone 10 mg 10 mg ONCE ONCE IV 05/14/17 16:00 05/14/17 16:01 DC 05/14/17 15:54 Sodium Chloride (NS) 1,000 ml @ 1,000 mls/hr Q1H STAT IV 05/14/17 15:52 05/14/17 16:51 05/14/17 15:57 Procedures/[facility] EKG: Rate/Rhythm: Normal Sinus Rhythm QRS, ST, T-waves: No changes consistent w/ acute ischemia Impression: No evidence of ischemia or arrhythmia Chest x-ray: No acute abnormalities CTA chest: No PE or other acute abnormalities Labs: CBC: no anemia or evidence of infection BMP: No evidence of electrolyte abnormality, renal failure, hypoglycemia, liver failure, or biliary obstruction Troponin within normal limits [facility] Patient is presenting with left-sided chest pain for about 1 week with left arm pain. Her vitals are notable for mild tachycardia and tachypnea. However this soon resolved after the patient was placed in a bed. However given her history of cancer, I cannot rule out pulmonary embolism as she is at moderate risk for this. I have a lower suspicion for acute ischemia, aortic dissection, or arrhythmia. Exam and work up not consistent w/ ischemia, arrhythmia, PE or dissection. Morphine and Zofran given IV for her pain and nausea that she developed while in the ED. After these medications were administered, the patient developed a phlebitis reaction at the site of the IV and along the arm. She complained of itchiness but no pain. She was given 1 L of fluids, Decadron 10 mg IV, and Benadryl 25 mg IV after this. She had no symptoms of anaphylaxis. After treatment, the patient was discharged in stable condition with instructions to follow-up with PCP in the next 1-2 days. Return precautions were given. Departure Diagnosis: Primary Impression: Left-sided chest wall pain Additional Impression: Left arm pain Condition: Stable Patient Instructions: Chest Pain, Uncertain Cause, Chest Wall Strain Additional Instructions: Malachi pam norm con sim medico primario en 1-2 stroud. Regresa a la saba de emergencias si song sintomas empeoran. SUMANTH PECK MD May 14, 2017 16:13
== END 2017-05-14 16:32 | disposition home or self-care (01) ==
LOC: E/R 13:03
DX: R07.89 Other chest pain (principal); M79.602 Pain in left arm; Z85.3 Personal history of malignant neoplasm of breast
CPT/HCPCS: 36415; 71010; 71275; 80048; 84484; 85025; 85610; 85730; 93005; 96374; 96375; J1100; J1200; J1885; J2270; J2405; J7030; Q9967; Z7502; Z7610

== ENCOUNTER 2017-08-16 12:40 | Emergency (ER) | payer OTHER ==
[~2017-08-16] VITALS: Wt 70.0 kg
[~2017-08-16 12:40] MED LIST changes: -ALPR0.5T6 PO; -FAMO20TA18 PO; -IBUP800T25 PO; -LORA1TAB PO; +NAPR-260 PO; +OMEP20CA16 PO; -PARO40TA48 PO
[2017-08-16 13:30] LABS: URINE BLOOD (Dip) POC Trace-intact (NEGATIVE)
[2017-08-16] MEDS ORDERED: IBUPROFEN 600 MG TAB PO ONE (13:30)
[2017-08-16] MEDS ORDERED: PHEN-538 PO (13:51)
--- NOTE | 2017-08-16 17:23 | ERD ---
ER Documentation Chief Complaint Date/Time DATE: 08/16/17 TIME: 17:20 Chief Complaint PAIN WITH URINATION HPI Patient is a 57-year-old female with past medical history of breast cancer presenting to the emergency department with complaints of dysuria intermittently for the past 2 days. Symptoms have shown no improvement. Symptoms are mild in severity. She denies fevers, chills, back pain, hematuria , or other symptoms at this time. ROS All systems reviewed and are negative except as per history of present illness. Medications Home Meds Active Scripts Phenazopyridine Hcl* (Pyridium*) 200 Mg Tab, 200 MG PO TID Y for URINARY PAIN, # 6 TAB Prov:NENITA FARLEY PA-C 08/16/17 Naproxen* (Naprosyn*) 500 Mg Tablet, 500 MG PO BID Y for PAIN AND/OR INFLAMMATION, #30 TAB Prov:SUMANTH PECK MD 05/14/17 Reported Medications Omeprazole* (Omeprazole*) 20 Mg Capsule.dr, 20 MG PO DAILY, #30 CAP 05/14/17 Diphenhydramine Hcl* (Benadryl*) 50 Mg Cap, 50 MG PO QHS Y for ITCHING, CAP 09/29/16 Gabapentin* (Neurontin*) 100 Mg Capsule, 200 MG PO QHS, CAP 01/17/15 Gabapentin* (Gabapentin*) 100 Mg Capsule, 100 PO QAM, CAP 01/17/15 Mirtazapine* (Mirtazapine*) 15 Mg Tablet, 15 MG PO HS, TAB 01/17/15 Allergies Allergies: Coded Allergies: morphine (Verified Allergy, Mild, phlebitis and itching, 05/14/17) Penicillins (Unverified Allergy, Unknown, 05/14/17) re-entered uncoded allergy as coded PMhx/Soc History of Surgery: Yes (RIGHT BREAST MASTECTOMY) Anesthesia Reaction: No Hx Neurological Disorder: No Hx Respiratory Disorders: No Hx Cardiac Disorders: No Hx Psychiatric Problems: No Hx Miscellaneous Medical Probl: Yes (BREAST CA, anxiety) Hx Alcohol Use: No Hx Substance Use: No Hx Tobacco Use: No Smoking Status: Never smoker Physical Exam Vitals Vital Signs Date Time Temp Pulse Resp B/P Pulse Ox O2 Delivery O2 Flow Rate FiO2 08/16/17 12:44 98.9 78 17 124/80 99 Physical Exam Const: Nontoxic, well-appearing female in no acute distress. Head: Atraumatic Eyes: Normal Conjunctiva ENT: Normal External Ears, Nose and Mouth. Neck: Full range of motion..~ No meningismus. Resp: Clear to auscultation bilaterally Cardio: Regular rate and rhythm, no murmurs Abd: Soft, non tender, non distended. Normal bowel sounds Skin: No petechiae or rashes Back: No midline or flank tenderness. No CVA tenderness. Ext: No cyanosis, or edema Neur: Awake and alert Psych: Normal Mood and Affect Results 24 hrs Laboratory Tests Test 08/16/17 13:38 Bedside Urine pH (LAB) 6.0 Bedside Urine Protein (LAB) Negative Bedside Urine Glucose (UA) Negative Bedside Urine Ketones (LAB) Negative Bedside Urine Blood Trace-intact Bedside Urine Nitrite (LAB) Negative Bedside Urine Leukocyte Esterase (L Negative Current Medications Medications (Trade) Dose Ordered Sig/Faith Route PRN Reason Start Time Stop Time Status Last Admin Dose Admin Ibuprofen (Motrin) 600 mg ONCE ONCE PO 08/16/17 13:30 08/16/17 13:31 DC 08/16/17 13:24 Procedures/MDM 57-year-old female presents to the emergency department with complaints of dysuria for the past 3 days. Physical examination is essentially unremarkable. Low suspicion for acute abdomen, pyelonephritis, sepsis, or other emergent conditions. The patient's vitals were within normal limits. She was afebrile. Urine dip is not concerning for urinary tract infection, proteinuria, or other abnormalities. The patient is stable for outpatient management with a prescription for Pyridium. She is to return immediately for any new or worsening symptoms. Close follow-up with the primary care physician was advised. Departure Diagnosis: Primary Impression: Dysuria Condition: Fair Patient Instructions: Dysuria Ref[facility] Usted se kaiser hecho un examen mdico de control que le indica que no est en pam condicin que requiera tratamiento urgente en el Departamento de Emergencia. Un estudio ms profundo y el tratamiento de sim condicin pueden esperar sin ningn riesgo hasta que usted sea atendida/o en el consultorio de sim mdico o pam cl joleen. Es responsabilidad suya arreglar pam norm para el seguimiento del [place]. MANEJO DE CONDICIONES NO URGENTES EN EL FUTURO 1) Si usted tiene un mdico de atencin primaria: Usted debera llamar a sim mdico de atencin primaria antes de venir al departamento de emergencia. Despus de las horas de consultorio, sim doctor o sim asociado/a est disponible por telfono. El mdico o enfermero de boris en el servicio telefnico puede asesorarle por garuang medio para atender el problema, o [place] contrario se puede programar pam norm. 2) Si usted no tiene un mdico de atencin primaria: Llame al mdico o clnica de referencia que aparece abajo rupal las horas de consultorio para hacer pam norm para que le vean. CLINICAS: [place] [id number] [phone] [facility] [place] [phone] [facility] [place]. [facility] [phone]. [place] [phone] [facility] [place] [id number] [phone] [facility]. [phone] Additional Instructions: No mas mejor en 2-3 stroud, regresar. Mas peor en 24 horas, regresear rapidamente. Ir a doctor primario in 5-7 stroud. Usar instrucciones cuando grayson medicamento. NENITA FARLEY PA-C Aug 16, 2017 17:22
== END 2017-08-16 14:28 | disposition home or self-care (01) ==
LOC: FTE 12:40
DX: R30.0 Dysuria (principal); Z85.3 Personal history of malignant neoplasm of breast
CPT/HCPCS: 81003; 87086; Z7502; Z7610; 99283

== ENCOUNTER 2017-09-14 20:00 | Emergency (ER) | payer OTHER ==
[~2017-09-14] VITALS: Ht 160 cm; Wt 74.3 kg
[~2017-09-14 20:00] MED LIST changes: +PHEN-538 PO
[2017-09-14 20:07] VITALS: Ht 160 cm; Wt 74.3 kg
[2017-09-14] MEDS ORDERED: METOCLOPRAMIDE 10 MG INJ IV STA (20:32)
[2017-09-14] MEDS ORDERED: KETOROLAC 15 MG INJ IV STA (20:32)
[2017-09-14] MEDS ORDERED: SOD CHLORIDE 0.9% 1,000 ML IV STA (20:32)
[2017-09-14] MEDS ORDERED: DIPHENHYDRAMINE 50 MG INJ IV ONE (21:00)
--- NOTE | 2017-09-14 21:20 | ERD ---
ER Documentation Chief Complaint Chief Complaint abdominal pain x 1 week, also c/o headache HPI This is a 57-year-old female with past medical history of breast cancer status post left-sided mastectomy, hypertension and depression who is presenting with upper abdominal pain and cramping with nausea, belching, dry heaving without any actual vomit and multiple episodes of diarrhea last night. The patient describes the diarrhea as black, which was concerning to her. The patient reports generalized abdominal discomfort over the last week or so, but the majority of her symptoms started last night after eating pizza. The patient states that she feels like acid is in her throat when she belches. She has not had any episodes of diarrhea today. She has had a decreased appetite today. She ate pizza last night prior to the onset of her symptoms. The patient denies fever or chills. The patient does endorse a mild occipital headache, but no vision changes. The patient does not endorse neck or back pain. The patient denies lightheadedness or dizziness. The patient has had no chest pain or shortness of breath or trouble breathing. She denies changes to urination. The patient has had no focal deficits. The patient has had no weakness or numbness or tingling to the face or extremities. ROS All systems reviewed and are negative except as per history of present illness. Medications Home Meds Active Scripts Ondansetron Hcl* (Zofran*) 4 Mg Tablet, 4 MG PO Q6H for NAUSEA AND/OR VOMITING, #20 TAB Prov:OTTO TORRES MD 09/14/17 Cephalexin* (Keflex*) 500 Mg Capsule, 500 MG PO BID for 7 Days, CAP Prov:OTTO TORRES MD 09/14/17 Allergies Allergies: Coded Allergies: Penicillins (Verified Allergy, Unknown, rash, 09/14/17) PMhx/Soc History of Surgery: Yes (left mastectomy) Anesthesia Reaction: No Hx Neurological Disorder: No Hx Respiratory Disorders: No Hx Cardiac Disorders: Yes (htn) Hx Psychiatric Problems: No Hx Miscellaneous Medical Probl: Yes (breast ca, depression ) Hx Alcohol Use: No Hx Substance Use: No Hx Tobacco Use: No Smoking Status: Never smoker FmHx Family History: No coronary disease, No diabetes Physical Exam Vitals Vital Signs Date Time Temp Pulse Resp B/P Pulse Ox O2 Delivery O2 Flow Rate FiO2 09/15/17 00:08 67 17 101/71 99 Room Air 09/14/17 23:00 71 16 138/90 98 Room Air 09/14/17 22:08 69 16 110/66 98 Room Air 09/14/17 21:17 72 17 126/93 98 Room Air 09/14/17 20:07 98.7 99 20 142/91 96 Physical Exam Const: No apparent distress, well-developed, well-nourished Head: Atraumatic Eyes: Normal Conjunctiva. Extraocular movements intact. ENT: Normal External Ears, Nose and Mouth. Neck: Full range of motion. No meningismus. Resp: Clear to auscultation bilaterally Cardio: Regular rate and rhythm, no murmurs Abd: Soft, non tender, non distended. Normal bowel sounds Rectal: No martha bleeding, soft brown/yellow stool, no hemorrhoids Skin: No petechiae or rashes Back: No midline or flank tenderness Ext: No cyanosis, or edema Neur: Awake and alert, oriented 4. Cranial nerves intact. No facial droop. Normal strength and sensation in all extremities. Coordination with finger to nose normal. Psych: Normal Mood and Affect Result Diagram: 09/14/17 2100 09/14/17 2100 Results 24 hrs Laboratory Tests Test 09/14/17 21:00 09/14/17 23:15 White Blood Count 10.610^3/ul Red Blood Count 4.4010^6/ul Hemoglobin 12.3g/dl Hematocrit 37.3% Mean Corpuscular Volume 84.8fl Mean Corpuscular Hemoglobin 28.0pg Mean Corpuscular Hemoglobin Concent 33.0g/dl Red Cell Distribution Width 13.4% Platelet Count 53282^3/UL Mean Platelet Volume 9.6fl Neutrophils % 64.2% Lymphocytes % 26.4% Monocytes % 4.5% Eosinophils % 4.1% Basophils % 0.4% Nucleated Red Blood Cells % 0.0/100WBC Neutrophils # 6.810^3/ul Lymphocytes # 2.810^3/ul Monocytes # 0.510^3/ul Eosinophils # 0.410^3/ul Basophils # 0.010^3/ul Nucleated Red Blood Cells # 0.010^3/ul Sodium Level 145mmol/L Potassium Level 3.8mmol/L Chloride Level 107mmol/L Carbon Dioxide Level 25mmol/L Anion Gap 17 Blood Urea Nitrogen 13mg/dl Creatinine 0.71mg/dl Glucose Level 109mg/dl Calcium Level 9.3mg/dl Total Bilirubin 0.3mg/dl Direct Bilirubin 0.00mg/dl Indirect Bilirubin 0.3mg/dl Aspartate Amino Transf (AST/SGOT) 26IU/L Alanine Aminotransferase (ALT/SGPT) 43IU/L Alkaline Phosphatase 129IU/L Total Protein 8.3g/dl Albumin 4.2g/dl Globulin 4.10g/dl Albumin/Globulin Ratio 1.02 Lipase 48U/L Urine Color COLORLESS Urine Clarity CLEAR Urine pH 7.0 Urine Specific [place] 1.003 Urine Ketones NEGATIVEmg/dL Urine Nitrite NEGATIVEmg/dL Urine Bilirubin NEGATIVEmg/dL Urine Urobilinogen NEGATIVEmg/dL Urine Leukocyte Esterase 1+Franca/ul Urine Microscopic RBC 1/HPF Urine Microscopic WBC 4/HPF Urine Bacteria FEW/HPF Urine Hemoglobin NEGATIVEmg/dL Urine Glucose NEGATIVEmg/dL Urine Total Protein NEGATIVEmg/dl Current Medications Medications (Trade) Dose Ordered Sig/Faith Route PRN Reason Start Time Stop Time Status Last Admin Dose Admin Sodium Chloride (NS) 1,000 ml @ 1,000 mls/hr Q1H STAT IV 09/14/17 20:32 09/14/17 21:31 DC 09/14/17 20:56 Metoclopramide HCl (Reglan) 10 mg ONCE STAT IV 09/14/17 20:32 09/14/17 20:35 DC 09/14/17 20:56 Diphenhydramine HCl (Benadryl) 25 mg ONCE ONCE IV 09/14/17 21:00 09/14/17 21:01 DC 09/14/17 20:56 Ketorolac Tromethamine (Toradol) 15 mg ONCE STAT IV 09/14/17 20:32 09/14/17 20:35 DC 09/14/17 20:56 Procedures/MDM MDM The patient's presentation warrants further investigation. She has nonspecifc abdominal pain. Her symptoms are suspicious for gastroenteritis, but a full abdominal workup will be obtained. LABS The patient's blood work was obtained and reviewed. The patient's CBC shows no leukocytosis or left shift. The patient is afebrile and does not appear systemically ill. I do not suspect a systemic infection. The patient is not anemic today. The patient's platelet count is unremarkable. The patient's CMP shows no signs of emergent metabolic or electrolyte abnormality. Aside from a mild elevation in alk phos, the patient has normal renal and hepatic function testing. Lipase normal. UA indeterminant, but possible signs of infection with positive leuk esterase, WBCs and Bacteria. EKG EKG read by me: Rate/Rhythm: Regular rate and rhythm at a rate of 79 Intervals: Normal [place]: Normal Impression: Nonspecific repolarization abnormalities, but no evidence of ischemia or arrhythmia TREATMENT/DISPOSITION Patient given toradol, reglan and benadryl, and IV fluids with resolution of her symptoms. She endorsed feeling hungry at the end of her assessment. This is reassuring. Her presentation is not consistent with appendicitis, ovarian pathology such as torsion or hemorrhagic cyst or TOA. She did have some suprapubic discomfort, and UTI is a possibility. She will be given a prescription for keflex. The patient does not have a history of GERD, but this is a possibility that may be worked up as an outpatient. The patient did not endorse any RUQ symptoms and has relatively normal hepatic pathology. I have lower suspicion for bilary colic or gallstones. The patient's lipase is normal and I do not suspect Pancreatitis. At this time, I feel that the patient stable for discharge. He will need follow -up with his primary care physician in 2-3 days. He will be given strict precautions with which to return to the emergency department. In addition to keflex, the patient will also recieve a prescription for zofran. The patient's blood pressure was elevated at greater than 120/80 while in the emergency department. The patient was otherwise stable with no evidence of hypertensive urgency or emergency. The patient will require reevaluation of his blood pressure in 2-3 days, but this may be completed by a primary care physician as an outpatient. He does not require admission for blood pressure control. Departure Diagnosis: Primary Impression: Abdominal pain Abdominal location: generalized Qualified Code: R10.84 - Generalized abdominal pain Additional Impressions: Nausea & vomiting Vomiting type: unspecified Vomiting Intractability: non-intractable Qualified Code: R11.2 - Non-intractable vomiting with nausea, unspecified vomiting type Diarrhea Diarrhea type: unspecified type Qualified Code: R19.7 - Diarrhea, unspecified type UTI (urinary tract infection) Urinary tract infection type: site unspecified Hematuria presence: without hematuria Qualified Code: N39.0 - Urinary tract infection without hematuria, site unspecified Condition: OTTO Lopez MD Sep 14, 2017 21:17
[2017-09-14] MEDS ORDERED: CEPH-443 PO (23:46)
[2017-09-14] MEDS ORDERED: ONDA4TAB8 PO (23:47)
[2017-09-15 00:08] VITALS: BP 101/71; PULSE 67; RESP 17
== END 2017-09-15 01:43 | disposition home or self-care (01) ==
LOC: MERGE 20:00 → E/R 20:00
DX: R10.84 Generalized abdominal pain (principal); R11.2 Nausea with vomiting, unspecified; R19.7 Diarrhea, unspecified; N39.0 Urinary tract infection, site not specified; I10 Essential (primary) hypertension; Z85.3 Personal history of malignant neoplasm of breast
CPT/HCPCS: 36415; 80053; 81001; 83690; 85025; 87086; 93005; 96374; 96375; J1200; J1885; J2765; J7030; Z7502

== ENCOUNTER 2017-11-07 15:45 | Emergency (ER) | END 2017-11-08 02:00 | disposition home or self-care (01) ==

== ENCOUNTER 2018-01-19 13:55 | Emergency (ER) | END 2018-01-19 17:40 | disposition home or self-care (01) ==

== ENCOUNTER 2019-01-23 06:17 | Day surgery (SDC) | payer OTHER ==
[~2019-01-23] VITALS: Ht 160 cm; Wt 73.9 kg
[~2019-01-23 06:17] MED LIST changes: +ALPR0.5T6 PO; -BEN50 PO; +BUTA1CAP38 PO; +CEPH-443 PO; -GABA100C PO; +LORA10TA3 PO; -NAPR-260 PO; -OMEP20CA16 PO; +OXYC-279 PO; -PHEN-538 PO
[2019-01-23 07:03] VITALS: Ht 160 cm; Wt 73.9 kg
[2019-01-23 07:32] VITALS: BP 128/71; PULSE 57; RESP 18
--- NOTE | 2019-01-23 07:41 | PREAC ---
Date/Time of Note Date/Time of Note DATE: 01/23/19 TIME: 07:38 Anesthesia Eval and Record Evaluation Time Pre-Procedure Interview DATE: 01/23/19 TIME: 07:38 Age 58 Sex female NPO: 8 hrs Preoperative diagnosis Screening, Changes of Bowel Habit Planned procedure Colonoscopy Past Medical History Past Medical History: Includes Pulm: Asthma Musculoskeletal: Osteoarthritis Hepatic: Other (Breast Cancer) Psych: Anxiety Surgery & Anesthesia Issues No known issue Meds Anticoagulation: No Beta Mel within 24 hr: No Reason Beta Mel not given: Pt. not on B-Mel Active Scripts Numdwxxpvx-Dnpqnzhbuzjvr-Swgomhre* (Fioricet*) 50-300-40 Mg Capsule, 1 CAP PO Q6 PRN for PAIN, #7 CAP Prov:VIVIEN CHAUDHARY PA-C 01/19/18 Cephalexin* (Keflex*) 500 Mg Capsule, 500 MG PO BID for 7 Days, CAP Prov:OTTO TORRES MD 11/08/17 Oxycodone HCl/Acetaminophen (Percocet 5-325 mg Tablet) 1 Each Tablet, 1 EACH PO TID for PAIN, #12 TAB Prov:JAYCE BRITO MD 11/07/17 Reported Medications Alprazolam* (Alprazolam*) 0.5 Mg Tablet, 0.5 MG PO BID PRN for ANXIETY, TAB 11/07/17 Loratadine* (Loratadine*) 10 Mg Tablet, 10 MG PO DAILY, #30 TAB 11/07/17 Gabapentin* (Gabapentin*) 100 Mg Capsule, 100 MG PO TID, CAP 01/17/15 Mirtazapine* (Mirtazapine*) 15 Mg Tablet, 15 MG PO HS, TAB 01/17/15 Meds reviewed: Yes Allergies Coded Allergies: morphine (Verified Allergy, Mild, phlebitis and itching, 11/07/17) Penicillins (Unverified Allergy, Unknown, 11/07/17) re-entered uncoded allergy as coded Allergies Reviewed: Yes Labs/Studies Labs Reviewed: Reviewed by anesthesiologist test: N/A Studies: ECG (n/a), CXR (n/a) Pre-procedure Exam Last vitals Vital Signs Date Temp Pulse Resp B/P (MAP) Pulse Ox O2 O2 Flow FiO2 Time Delivery Rate 01/23/19 98.0 57 18 128/71 97 Room Air 07:32 (90) Airway: Adequate mouth opening, Adequate thyromental dist Mallampati: Mallampati II Teeth: Normal Lung: Normal Heart: Normal ASA Physical Status ASA physical status: 3 Emergency: None Planned Anesthetic General/MAC: MAC Planned Pain Management Parenteral pain med Pre-operative Attestations Prior to commencing anesthesia and surgery, the patient was re-evaluated, there was verification of: *The patient's identity *The results of appropriate recent lab work and preoperative vital signs *The above evaluation not changing prior to induction *Anesthetic plan, risk benefits, alternative and complications discussed with patient/family; questions answered; patient/family understands, accepts and wishes to proceed. CARMEN MATHEW MD Jan 23, 2019 07:41
--- NOTE | 2019-01-23 08:33 | PAC ---
Date/Time of Note Date/Time of Note DATE: 01/23/19 TIME: 08:32 Post-Anesthesia Notes Post-Anesthesia Note Last documented vital signs Vital Signs Date Temp Pulse Resp B/P (MAP) Pulse Ox O2 O2 Flow FiO2 Time Delivery Rate 01/23/19 98.0 57 18 128/71 97 Room Air 08:32 (90) Activity: WNL Respiratory function: WNL Cardiovascular function: WNL Mental status: Baseline Pain reasonably controlled: Yes Hydration appropriate: Yes Nausea/Vomiting absent: Yes CARMEN MATHEW MD Jan 23, 2019 08:33
[2019-01-23] MEDS ORDERED: PROPOFOL 40 ML ONE (08:54)
[2019-01-23 08:57] VITALS: BP 119/61; PULSE 47; RESP 16
== END 2019-01-23 11:52 | disposition home or self-care (01) ==
LOC: GIL 06:17
PROVIDERS: ATTEND Internal Medicine Gastroenterology
DX: Z12.11 Encounter for screening for malignant neoplasm of colon (principal); K64.8 Other hemorrhoids; J45.909 Unspecified asthma, uncomplicated
CPT/HCPCS: 45378; Z7610

== ENCOUNTER 2019-03-14 21:40 | Inpatient (IN) | payer OTHER ==
[~2019-03-14] VITALS: Ht 162.6 cm; Wt 74.0 kg
[2019-03-15] VITALS (13 sets, daily range): BP systolic 114–134; BP diastolic 61–78; PULSE 45–77; RESP 18; Ht 162.6 cm; Wt 74.0 kg
[2019-03-15] MEDS ORDERED: ONDANSETRON 4 MG INJ IV PRN (02:00)
[2019-03-15] MEDS ORDERED: ACET/BUTAL/CAFF TAB PO PRN (02:00)
[2019-03-15] MEDS ORDERED: NITROGLYCERIN (SL) 0.4 MG TAB SL PRN (02:00)
[2019-03-15] MEDS ORDERED: NACL 0.9% 3 ML SYG IV SCH (02:00)
[2019-03-15] MEDS ORDERED: ACETAMINOPHEN 325 MG TAB PO PRN (02:00)
[2019-03-15] MEDS ORDERED: HYDROCODONE/APAP (5/325) TAB PO PRN (02:00)
--- NOTE | 2019-03-15 06:11 | HP ---
Date/Time of Note Date/Time of Note DATE: 03/15/19 TIME: 06:06 Assessment/Plan VTE Prophylaxis Pharmacological prophylaxis: heparin Lines/Catheters IV Catheter Type (from Nrsg): Saline Lock Assessment/Plan Assessment/Plan 1. Chest pain: Rule out ACS -Telemetry monitoring -Supplemental oxygen, aspirin. As needed nitro. Heart rate will not tolerate beta-yoni -Serial troponin -2D echo and cardiology consult 2. History of left breast carcinoma: Status post mastectomy in 2014 -No acute issue HPI/ROS Admit Date/Time Admit Date/Time March 14, 2019 at 23:48 Hx of Present Illness This is a 58-year-old female with a history of left breast carcinoma status post mastectomy in 2014, history of anxiety/depression. She initially presented on outside hospital complaining of chest pain. Pain is localized in the mid chest and also is left-sided. She reported intermittent shortness of breath. No vomiting or diaphoresis. Initial troponin was negative and EKG without ST elevation or depression. Patient was transferred to [facility] for insurance reasons. PMH/Family/Social Past Medical History Past Surgical Hx: other (see hpi) Family History Significant Family History: no pertinent family hx Social History Alcohol Use: heavy (2 beers a day) Smoking Status: Never smoker Drug Use: none Exam Constitutional: other (no acute distress) ENMT: nl external ears & nose Neck: supple, non-tender Respiratory: normal air movement Cardiovascular: nl pulses Gastrointestinal: soft Extremities: normal pulses Medications Current Medications IV Flush (NS 3 ml) 3 ml PER PROTOCOL IV ; Start 03/15/19 at 02:00 Ondansetron HCl (Zofran Inj) 4 mg Q6H PRN IV NAUSEA/VOMITING; Start 03/15/19 at 02:00 Aspirin (Aspirin) 81 mg DAILY PO ; Start 03/15/19 at 09:00 Nitroglycerin (Nitroglycerin (Sl Tab) 0.4 Mg) 1 tab Q5M PRN SL .CHEST PAIN; Start 03/15/19 at 02:00 Acetaminophen (Tylenol Tab) 650 mg Q6H PRN PO .PAIN 1-3 OR TEMP; Start 03/15/19 at 02:00 Acetaminophen/ Hydrocodone Bitart ([place] (5/325)) 1 tab Q6H PRN PO .PAIN 4-6; Start 03/15/19 at 02:00 Acetaminophen/ Hydrocodone Bitart ([place] (5/325)) 2 tab Q6H PRN PO .PAIN 7-10 Last administered on 03/15/19at 05:11; Admin Dose 2 TAB; Start 03/15/19 at 02:00 Enoxaparin Sodium (Lovenox) 40 mg DAILY SC ; Start 03/15/19 at 09:00 Alprazolam (Xanax) 0.5 mg BID PRN PO ANXIETY; Start 03/15/19 at 02:00 Acetaminophen/ Butalbital/ Caffeine (Fioricet) 1 tab Q6 PRN PO PAIN; Start 03/15/19 at 02:00 Gabapentin (Neurontin) 100 mg TID PO ; Start 03/15/19 at 09:00 Loratadine (Claritin) 10 mg DAILY PO ; Start 03/15/19 at 09:00 Mirtazapine (Remeron) 15 mg HS PO ; Start 03/15/19 at 21:00 Coded Allergies: morphine (Verified Allergy, Mild, phlebitis and itching, 11/07/17) Penicillins (Unverified Allergy, Unknown, 11/07/17) re-entered uncoded allergy as coded Social History Smoking Status: Never smoker Exam/Review of Systems Vital Signs Vitals Vital Signs Date Temp Pulse Resp B/P (MAP) Pulse Ox O2 O2 Flow FiO2 Time Delivery Rate 03/15/19 45 05:17 03/15/19 97.9 18 114/61 96 03:32 (78) NENITA HUITRON MD March 15, 2019 06:11
[2019-03-15] MEDS: GABAPENTIN 100 MG CAP PO SCH ×3 (08:05→20:02)
[2019-03-15] MEDS: ASPIRIN 81 MG TAB PO SCH (08:05)
[2019-03-15] MEDS: ENOXAPARIN 40 MG/0.4 ML SYG SC SCH (08:10)
[2019-03-15] MEDS: LORATADINE 10 MG TAB PO SCH (08:12)
[2019-03-15] MEDS: ALPRAZOLAM 0.5 MG TAB PO PRN ×2 (10:02→18:06)
--- NOTE | 2019-03-15 11:14 | PN ---
Date/Time of Note Date/Time of Note DATE: 03/15/19 TIME: 11:06 Assessment/Plan VTE Prophylaxis Risk score (from Ns)>0 risk: 2 SCD applied (from Ns): Yes Pharmacological prophylaxis: heparin Lines/Catheters IV Catheter Type (from Nrs): Saline Lock Assessment/Plan Problems: (1) Breast pain Status: Acute Comment: Is admitted as a chest pain patient. Work-up is ongoing but my index of suspicion is not terribly high. We will go ahead and complete the work-up and make sure that there is nothing more insidious going on (2) Anxiety Status: Acute Comment: This is a persistent significant issue. There may be an opportunity here given her anxiety disorder and chronic headache to use an add-on agent that would also work with the headaches. (3) Chronic headache Status: Acute Comment: Topiramate therapy Qualifiers: Headache type: unspecified Intractability: not intractable Qualified Codes: R51 - Headache (4) Carcinoma of left breast Onset Date: ~ 01/17/2015 Status: Chronic Comment: Noted. Presently quiescent Qualifiers: Breast location: unspecified site of breast Estrogen receptor status: negative Patient sex: female Qualified Codes: C50.912 - Malignant neoplasm of unspecified site of left female breast; Z17.1 - Estrogen receptor negative status [ER-] (5) Anemia Status: Chronic Comment: Check iron levels Qualifiers: Anemia type: unspecified type Qualified Codes: D64.9 - Anemia, unspecified (6) Diverticulosis of colon Status: Chronic Comment: Noted. (7) Uterine fibroid Status: Chronic Comment: Noted. No therapeutic intervention needed Qualifiers: Uterine leiomyoma location: intramural Qualified Codes: D25.1 - Intramural leiomyoma of uterus (8) Umbilical hernia Status: Chronic Comment: A small lesion with fat in it only. No therapeutic intervention required Qualifiers: Obstruction and gangrene presence: without obstruction or gangrene Qualified Codes: K42.9 - Umbilical hernia without obstruction or gangrene (9) Hiatal hernia Status: Chronic Comment: Noted. Result Diagram: 03/15/19 0516 03/15/19 0516 Results 24hrs Laboratory Tests Test 03/15/19 05:16 White Blood Count 8.9 Red Blood Count 4.02 L Hemoglobin 10.8 L Hematocrit 34.4 L Mean Corpuscular Volume 85.6 Mean Corpuscular Hemoglobin 26.9 L Mean Corpuscular Hemoglobin Concent 31.4 L Red Cell Distribution Width 13.9 Platelet Count 301 Mean Platelet Volume 9.9 Immature Granulocytes % 0.500 H Neutrophils % 54.6 Lymphocytes % 35.1 Monocytes % 5.2 Eosinophils % 4.3 Basophils % 0.3 Nucleated Red Blood Cells % 0.0 Immature Granulocytes # 0.040 H Neutrophils # 4.8 Lymphocytes # 3.1 H Monocytes # 0.5 Eosinophils # 0.4 Basophils # 0.0 Nucleated Red Blood Cells # 0.0 Prothrombin Time 13.3 Prothrombin Time Ratio 1.0 INR International Normalized Ratio 1.00 Activated Partial Thromboplast Time 32.2 D-Dimer 2128.58 H D-Dimer Comment Sodium Level 142 Potassium Level 3.8 Chloride Level 107 Carbon Dioxide Level 25 Anion Gap 10 Blood Urea Nitrogen 15 Creatinine 0.77 Est Glomerular Filtrat Rate mL/min > 60 Glucose Level 96 Hemoglobin A1c 5.7 Calcium Level 9.1 Magnesium Level 1.9 Total Bilirubin 0.1 L Direct Bilirubin 0.00 Indirect Bilirubin 0.1 Aspartate Amino Transf (AST/SGOT) 16 Alanine Aminotransferase (ALT/SGPT) 15 Alkaline Phosphatase 111 Creatine Kinase 27 Creatine Kinase Index 0.8 Creatinine Kinase MB (Mass) < 0.22 Troponin I < 0.012 Total Protein 7.5 Albumin 3.8 Globulin 3.70 H Albumin/Globulin Ratio 1.02 Triglycerides Level 139 Cholesterol Level 134 LDL Cholesterol, Calculated 85 HDL Cholesterol 21 L Cholesterol/HDL Ratio 6.3 Thyroid Stimulating Hormone (TSH) 3.890 Subjective 24 Hr Interval Summary Free Text/Dictation Patient reports he is not having chest pain now. Please note that she is only been here a few hours Constitutional: no complaints ENT: no complaints Respiratory: no complaints Cardiovascular: chest pain (No further chest pain) Psychological: anxiety (Complains of severe anxiety) Exam/Review of Systems Exam Vitals Vital Signs Date Temp Pulse Resp B/P (MAP) Pulse Ox O2 O2 Flow FiO2 Time Delivery Rate 03/15/19 59 08:01 03/15/19 98.2 18 118/63 98 07:21 (81) Intake and Output 03/14/19 03/14/19 03/15/19 1515:00 23:00 07:00 IntakeIntake Total 250 ml BalanceBalance 250 ml Exam [place] female lying in bed able to move around without issues Constitutional: alert, oriented Respiratory: clear to auscultation, normal air movement Cardiovascular: regular rate and rhythm, nl pulses Gastrointestinal: soft, nl liver, spleen, non-tender Results Results 24hrs Laboratory Tests Test 03/15/19 05:16 White Blood Count 8.9 Red Blood Count 4.02 L Hemoglobin 10.8 L Hematocrit 34.4 L Mean Corpuscular Volume 85.6 Mean Corpuscular Hemoglobin 26.9 L Mean Corpuscular Hemoglobin Concent 31.4 L Red Cell Distribution Width 13.9 Platelet Count 301 Mean Platelet Volume 9.9 Immature Granulocytes % 0.500 H Neutrophils % 54.6 Lymphocytes % 35.1 Monocytes % 5.2 Eosinophils % 4.3 Basophils % 0.3 Nucleated Red Blood Cells % 0.0 Immature Granulocytes # 0.040 H Neutrophils # 4.8 Lymphocytes # 3.1 H Monocytes # 0.5 Eosinophils # 0.4 Basophils # 0.0 Nucleated Red Blood Cells # 0.0 Prothrombin Time 13.3 Prothrombin Time Ratio 1.0 INR International Normalized Ratio 1.00 Activated Partial Thromboplast Time 32.2 D-Dimer 2128.58 H D-Dimer Comment Sodium Level 142 Potassium Level 3.8 Chloride Level 107 Carbon Dioxide Level 25 Anion Gap 10 Blood Urea Nitrogen 15 Creatinine 0.77 Est Glomerular Filtrat Rate mL/min > 60 Glucose Level 96 Hemoglobin A1c 5.7 Calcium Level 9.1 Magnesium Level 1.9 Total Bilirubin 0.1 L Direct Bilirubin 0.00 Indirect Bilirubin 0.1 Aspartate Amino Transf (AST/SGOT) 16 Alanine Aminotransferase (ALT/SGPT) 15 Alkaline Phosphatase 111 Creatine Kinase 27 Creatine Kinase Index 0.8 Creatinine Kinase MB (Mass) < 0.22 Troponin I < 0.012 Total Protein 7.5 Albumin 3.8 Globulin 3.70 H Albumin/Globulin Ratio 1.02 Triglycerides Level 139 Cholesterol Level 134 LDL Cholesterol, Calculated 85 HDL Cholesterol 21 L Cholesterol/HDL Ratio 6.3 Thyroid Stimulating Hormone (TSH) 3.890 Medications Medication Current Medications IV Flush (NS 3 ml) 3 ml PER PROTOCOL IV ; Start 03/15/19 at 02:00 Ondansetron HCl (Zofran Inj) 4 mg Q6H PRN IV NAUSEA/VOMITING; Start 03/15/19 at 02:00 Aspirin (Aspirin) 81 mg DAILY PO Last administered on 03/15/19at 08:05; Admin Dose 81 MG; Start 03/15/19 at 09:00 Nitroglycerin (Nitroglycerin (Sl Tab) 0.4 Mg) 1 tab Q5M PRN SL .CHEST PAIN; Start 03/15/19 at 02:00 Acetaminophen (Tylenol Tab) 650 mg Q6H PRN PO .PAIN 1-3 OR TEMP; Start 03/15/19 at 02:00 Acetaminophen/ Hydrocodone Bitart ([place] (5/325)) 1 tab Q6H PRN PO .PAIN 4-6; Start 03/15/19 at 02:00 Acetaminophen/ Hydrocodone Bitart ([place] (5/325)) 2 tab Q6H PRN PO .PAIN 7-10 Last administered on 03/15/19at 05:11; Admin Dose 2 TAB; Start 03/15/19 at 02:00 Enoxaparin Sodium (Lovenox) 40 mg DAILY SC Last administered on 03/15/19at 08:10; Admin Dose 40 MG; Start 03/15/19 at 09:00 Alprazolam (Xanax) 0.5 mg BID PRN PO ANXIETY Last administered on 03/15/19at 10:02; Admin Dose 0.5 MG; Start 03/15/19 at 02:00 Acetaminophen/ Butalbital/ Caffeine (Fioricet) 1 tab Q6 PRN PO PAIN; Start 03/15/19 at 02:00 Gabapentin (Neurontin) 100 mg TID PO Last administered on 03/15/19at 08:05; Admin Dose 100 MG; Start 03/15/19 at 09:00 Loratadine (Claritin) 10 mg DAILY PO ; Start 03/15/19 at 09:00 Mirtazapine (Remeron) 15 mg HS PO ; Start 03/15/19 at 21:00 SARI BENEDICT MD March 15, 2019 11:14
[2019-03-15] MEDS: TOPIRAMATE 25 MG TAB PO SCH ×2 (11:25→20:02)
[2019-03-15] MEDS: HYDROCODONE/APAP (5/325) TAB PO PRN ×2 (11:33→16:43)
--- NOTE | 2019-03-15 17:44 | RADRPT ---
Echocardiogram Report Patient Name: KERI EVERETTPatient ID: [id number] : 1960 (58y 10m)Study Date: 03/15/2019 8:35:23 AM Gender: FAccession #: [id number] Tech: EmilianoDANIELLEMONET Location: Ref.Physician: NENITA HUITRON Height(Cm): BSA: Weight(Kg): Quality: AdequateAccount #: Procedures: Echocardiographic Report: Transthoracic echocardiogram with complete 2D, M-Mode, and doppler examination. Indications: Chest Pain. Measurements: 2D/M Mode Doppler Measurement Value Normal Range Measurement Value Normal Range LVIDd 2D 3.0 [ 3.8 - 5.2 ] cm AV Peak Ricardo 1.1 [ 100.0 - 170.0 ] cm/se c LVIDs 2D 2.1 [ 2.2 - 3.5 ] cm AV Peak PG 5.0 [ 2.0 - 9.0 ] mmHg LVPWd 2D 0.8 [ 0.6 - 0.9 ] cm LVOT Peak Ricardo 0.8 [ 70.0 - 110.0 ] cm/sec IVSd 2D 0.8 [ 0.6 - 0.9 ] cm LVOT Peak PG 3.0 [ 2.0 - 6.0 ] mmHg AoR Diam 2D 2.2 [ 2.3 - 3.1 ] cm MV E Peak Ricardo 0.6 [ 60.0 - 130.0 ] cm/sec EDV 2D 36.4 [ 46.0 - 106.0 ] ml MV A Peak Ricardo 0.4 [ 100.0 - 120.0 ] cm/se c ESV 2D 14.2 [ 14.0 - 42.0 ] ml MV E/A 1.3 [ 0.8 - 1.5 ] ratio EF 2D 61.0 [ 54.0 - 74.0 ] percent MV PHT 61.0 [ 20.0 - 100.0 ] msec LA Dimen 2D 3.2 [ 2.7 - 3.8 ] cm MV Decel Time 208 [ 104 - 258 ] msec MV Decel Spencer 3 Lat E` Ricardo 0.1 [ 10.0 - 15.0 ] cm/sec Lateral E/E` 5.0 [ 1.0 - 2.0 ] ratio Med E` Ricardo 0.1 cm/sec MV E/A 1.3 [ 0.8 - 1.5 ] ratio MVA PHT 3.6 [ 2.0 - 4.0 ] cm2 Findings: Left Ventricle: Normal left ventricular systolic function. Normal left ventricular cavity size. Normal left ventricular wall thickness. Ejection fraction is visually estimated at 55 %. Right Ventricle: Normal right ventricular size. Normal right ventricular systolic function. Left Atrium: The left atrium is normal in size. Right Atrium: The right atrium is normal in size. Atrial Septum: Normal atrial septum. Ventricular septum: Normal/intact ventricular septum. Mitral Valve: Normal appearance of the mitral valve. Trace mitral regurgitation. Aortic Valve: Normal appearance of the aortic valve. No aortic regurgitation. Tricuspid Valve: Normal appearance of the tricuspid valve. Unable to obtain RVSP due to minimal presence of tricuspid regurgitation. There is trace tricuspid regurgitation. Pulmonic Valve: Normal pulmonic valve appearance. No evidence of pulmonic regurgitation. Pericardium: Normal pericardium with no significant pericardial effusion. Aorta: Normal aortic root. IVC: Normal size and normal respiratory collapse consistent with normal right atrial pressure. Conclusions: Normal left ventricular systolic function. Normal left ventricular cavity size. Normal left ventricular wall thickness. Ejection fraction is visually estimated at 55 %. Normal appearance of the mitral valve. Trace mitral regurgitation. Normal appearance of the tricuspid valve. Unable to obtain RVSP due to minimal presence of tricuspid regurgitation. There is trace tricuspid regurgitation. Electronically Signed By: Jean Pollard 2019-03-15 17:43:35 PDT
[2019-03-15] MEDS ORDERED: MIRTAZAPINE 15 MG TAB PO SCH (21:00)
[2019-03-16] VITALS (10 sets, daily range): BP systolic 103–139; BP diastolic 61–78; PULSE 60–87; RESP 18–20
[2019-03-16] MEDS: ASPIRIN 81 MG TAB PO SCH (08:26)
[2019-03-16] MEDS: TOPIRAMATE 25 MG TAB PO SCH (08:26)
[2019-03-16] MEDS: GABAPENTIN 100 MG CAP PO SCH ×2 (08:27→12:33)
[2019-03-16] MEDS: ENOXAPARIN 40 MG/0.4 ML SYG SC SCH (08:34)
[2019-03-16] MEDS: LORATADINE 10 MG TAB PO SCH (08:34)
--- NOTE | 2019-03-16 09:27 | RADRPT ---
Vent Rate: 50 bpm RR Interval: 1196 msec NC Interval: 171 msec QRS Duration: 100 msec QT Interval: 463 msec QTC Interval: 423 msec P-R-T [place]: 29 - 54 - 30 degrees Sinus Bradycardia Electronically Signed By: Shukri Guillen
[2019-03-16] MEDS ORDERED: MAGNESIUM CITRATE 300 ML BTL PO ONE (11:30)
[2019-03-16] MEDS ORDERED: ASPI-831 PO (11:40)
[2019-03-16] MEDS ORDERED: HYDR-3601 PO (11:40)
[2019-03-16] MEDS ORDERED: DOCU-144 PO (11:40)
--- NOTE | 2019-03-16 11:40 | DS ---
Date/Time of Note Date/Time of Note DATE: 03/16/19 TIME: 11:33 Discharge Summary Admission/Discharge Info Admit Date/Time March 14, 2019 at 23:48 Discharge Date/Time Discharge Diagnosis 1. Chest pain: resolved 2. History of left breast carcinoma: Status post mastectomy in 2014 . Patient Condition: Stable Consults None . Hospital Course Pleasant 58-year-old female with a history of left breast cancer status post mastectomy 2014. She sees Dr. Thompson in follow-up every 6 months. She did have a repeat mammogram 2 weeks ago but the results are pending. She had presented to outside hospital with chest pain and was admitted for ACS rule out. Patient has been ruled out with 3- cardiac enzymes, 2D echo was done and patient was found to have ejection fraction of 55% without significant valvular abnormality. At this time pain is resolved. Patient has no history of coronary disease, patient is stable for discharge and outpatient follow-up. Patient is encouraged to see her outpatient surgeon in follow-up as pain may be related to her previous breast cancer surgery. She is continued on her previous pain medication for [place], prescriptions have been refilled. Patient also compla ining of constipation today, she will be given a laxative and started on daily stool softeners. Plan of care has been discussed the patient in detail, questions have been answered, patient is in agreement with discharge. . Home Meds Active Scripts Qryarjfdez-Fnxwxfvjxhcpz-Szefhmhf* (Fioricet*) 50-300-40 Mg Capsule, 1 CAP PO Q6 PRN for PAIN, #7 CAP Prov:VIVIEN CHAUDHARY PA-C 01/19/18 Cephalexin* (Keflex*) 500 Mg Capsule, 500 MG PO BID for 7 Days, CAP Prov:OTTO TORRES MD 11/08/17 Oxycodone HCl/Acetaminophen (Percocet 5-325 mg Tablet) 1 Each Tablet, 1 EACH PO TID for PAIN, #12 TAB Prov:JAYCE BRITO MD 11/07/17 Reported Medications Alprazolam* (Alprazolam*) 0.5 Mg Tablet, 0.5 MG PO BID PRN for ANXIETY, TAB 11/07/17 Loratadine* (Loratadine*) 10 Mg Tablet, 10 MG PO DAILY, #30 TAB 11/07/17 Gabapentin* (Gabapentin*) 100 Mg Capsule, 100 MG PO TID, CAP 01/17/15 Mirtazapine* (Mirtazapine*) 15 Mg Tablet, 15 MG PO HS, TAB 01/17/15 Follow-up Plan Patient will follow-up with her general surgeon Dr. Garcia for follow-up on mammogram results as well as with primary care doctor to ensure continued resolution of symptoms. . Primary Care Provider [facility] Time spent on discharge: > 30 minutes Pending Labs Laboratory Tests Test 03/15/19 18:02 03/16/19 05:38 Bedside Glucose 120 mg/dL (70-220) White Blood Count 9.2 10^3/ul (4.8-10.8) Red Blood Count 4.39 10^6/ul (4.20-5.40) Hemoglobin 11.8 g/dl (12.0-16.0) Hematocrit 37.5 % (37.0-47.0) Mean Corpuscular Volume 85.4 fl (82.0-101.0) Mean Corpuscular Hemoglobin 26.9 pg (29.0-33.0) Mean Corpuscular 31.5 g/dl (32.0-37.0) Hemoglobin Concent Red Cell Distribution Width 13.7 % (11.5-14.5) Platelet Count 310 10^3/UL (140-415) Mean Platelet Volume 9.7 fl (7.4-10.4) Immature Granulocytes % 0.400 % (0.001-0.429) Neutrophils % 64.2 % (39.0-77.0) Lymphocytes % 26.7 % (15.0-51.0) Monocytes % 4.9 % (0.0-11.0) Eosinophils % 3.4 % (0.0-7.0) Basophils % 0.4 % (0.0-2.0) Nucleated Red Blood Cells % 0.0 /100WBC (0.0-0.0) Immature Granulocytes # 0.040 10^3/ul (0.0-0.031) Neutrophils # 5.9 10^3/ul (1.6-7.5) Lymphocytes # 2.4 10^3/ul (0.8-2.9) Monocytes # 0.5 10^3/ul (0.3-0.9) Eosinophils # 0.3 10^3/ul (0.0-0.5) Basophils # 0.0 10^3/ul (0.0-0.1) Nucleated Red Blood Cells # 0.0 10^3/ul (0.0-0.0) Sodium Level 142 mmol/L (135-144) Potassium Level 3.9 mmol/L (3.5-5.1) Chloride Level 107 mmol/L (97-110) Carbon Dioxide Level 24 mmol/L (21-31) Anion Gap 11 (5-13) Blood Urea Nitrogen 18 mg/dl (7-20) Creatinine 0.69 mg/dl (0.44-1.00) Est Glomerular Filtrat > 60 mL/min (>60) Rate mL/min Glucose Level 94 mg/dl (70-220) Calcium Level 9.8 mg/dl (8.4-10.2) Phosphorus Level 4.9 mg/dl (2.5-4.9) Magnesium Level 2.1 mg/dl (1.7-2.5) FRANK PARNELL March 16, 2019 11:40
--- NOTE | 2019-03-16 11:41 | PDOCDIS ---
Discharge Instructions DIAGNOSIS Discharge Diagnosis 1. Chest pain: resolved 2. History of left breast carcinoma: Status post mastectomy in 2015 . CONDITION [id number] Patient Condition: [id number] Stable HOME CARE INSTRUCTIONS: [id number] Diet Instructions: Acawv0n Low Fat /Cholesterol ACTIVITY: [id number] Activity Restrictions: Trwig9g Slowly Increase Activity FOLLOW UP/APPOINTMENTS Follow-up Plan Patient will follow-up with her general surgeon Dr. Garcia for follow-up on mammogram results as well as with primary care doctor to ensure continued resolution of symptoms. . FRANK PARNELL March 16, 2019 11:41
[2019-03-16] MEDS: ALPRAZOLAM 0.5 MG TAB PO PRN (11:58)
[2019-03-16] MEDS ORDERED: DOCUSATE SODIUM 100 MG CAP PO SCH (21:00)
== END 2019-03-16 18:15 | disposition home or self-care (01) | DRG 313 ==
LOC: 6WM 23:48
PROVIDERS: ADMIT Internal Medicine; ATTEND Family Medicine
DX: R07.9 Chest pain, unspecified (principal); F41.9 Anxiety disorder, unspecified; F32.9 Major depressive disorder, single episode, unspecified; D64.9 Anemia, unspecified; K42.9 Umbilical hernia without obstruction or gangrene; D25.1 Intramural leiomyoma of uterus; R51 Headache; K57.30 Diverticulosis of large intestine without perforation or abscess without bleeding; K59.00 Constipation, unspecified; Z79.82 Long term (current) use of aspirin; Z90.12 Acquired absence of left breast and nipple; Z85.3 Personal history of malignant neoplasm of breast
CPT/HCPCS: 80048; 80053; 80061; 82550; 82553; 82728; 82962; 83036; 83540; 83735; 84100; 84443; 84484; 85025; 85378; 85610; 85730; 86803; 93005; 93306; J1650